=== PATIENT | male | born 1955 | race Caucasian/White ===

== ENCOUNTER 2018-06-04 17:06 | Inpatient (IN) | payer BC, OTHER ==
--- NOTE | 2018-06-04 19:34 | ED ---
GI/ HPI - HPI Summary HPI Summary: The pt is a 62 y/o male with a Mhx of colorectal CA [facility] c/o testicular pain and swelling since 4 days ago. The CA got diagnosed in 2016 and the pt is currently undergoing treatment at [facility] in [facility]. He notes bilateral LE edema, scrotal pain, penile pain, rectal pain, and insomnia secondary to pain but denies fever and constipation. The pain rated 8/10 in severity is aggravated by seating and alleviated by standing. The pt had radiation therapy to his brain and upper spine that ended a week and a half ago. He is off chemotherapy because it was not working. He takes Hydromorphone and Methadone for pain. - History of Current Complaint Chief Complaint: EDUrogenitalProblems Time Seen by Provider: 06/04/18 19:16 Stated Complaint: SWOLLEN TESTICLES/LEGS/FEET Hx Obtained From: Patient, Family/Insurance Application Investigator Onset/Duration: Started Days Ago - 4 days, Still Present Timing: Constant Current Severity: Severe Pain Intensity: 8 Additional Locations for Males: Penis, Scrotum, Testicles Aggravating Factor(s): Sitting Alleviating Factor(s): Position - Standing - Allergy/Home Medications Allergies/Adverse Reactions: Allergies Allergy/AdvReac Type Severity Reaction Status Date / Time No Known Allergies Allergy Verified 06/04/18 17:35 PMH/Surg Hx/FS Hx/Imm Hx Previously Healthy: No Endocrine/Hematology History: Denies: Hx Diabetes Cardiovascular History: Reports: Hx Atrial Fibrillation History: Reports: Other Problems/Disorders - Colorectal CA diagnosed in 2016 Sensory History: Denies: Hx Deafness Opthamlomology History: Denies: Hx Legally Blind - Cancer History Cancer Type, Location and Year: Colorectal CA- 2015 Date and Location of Last Treatment: Radiation therapy to his upper spine and brain 1.5 weeks ago. Hx Chemotherapy: Yes Hx Radiation Therapy: Yes - Surgical History Surgery Procedure, Year, and Place: Colostomy - 1 year ago Infectious Disease History: No Infectious Disease History: Denies: Traveled Outside the [place] in Last 30 Days - Family History Known Family History: Negative: Cardiac Disease, Hypertension, Diabetes - Social History Occupation: Employed Full-time Lives: With Family Alcohol Use: None Substance Use Type: Reports: None Hx Tobacco Use: No Review of Systems Constitutional: Other - Positive: Insomnia secondary to pain Negative: Fever Gastrointestinal: Negative - Constipation Positive: other - Positive: Scrotal pain and swelling, penile pain, testicular pain and swelling Positive: Edema - Bilateral LE All Other Systems Reviewed And Are Negative: Yes Physical Exam - Summary Physical Exam Summary: VITAL SIGNS: Reviewed. GENERAL: Patient is a well-developed and nourished male who is lying comfortable in the stretcher. Patient is not in any acute respiratory distress. HEAD AND FACE: No signs of trauma. No ecchymosis, hematomas or skull depressions. No sinus tenderness. EYES: PERRLA, EOMI x 2, No injected conjunctiva, no nystagmus. EARS: Hearing grossly intact. Ear canals and tympanic membranes are within normal limits. MOUTH: Oropharynx within normal limits. NECK: Supple, trachea is midline, no adenopathy, no JVD, no carotid bruit, no c- spine tenderness, neck with full ROM. CHEST: Symmetric, no tenderness at palpation LUNGS: Clear to auscultation bilaterally. No wheezing or crackles. CVS: Tachycardia, S1 and S2 present, no murmurs or gallops appreciated. ABDOMEN: Colostomy bag on the L side ,soft, non-tender. No signs of distention. No rebound no guarding, and no masses palpated. Bowel sounds are normal. EXTREMITIES: FROM in all major joints, bilateral 3 4+ pitting edema , no cyanosis or clubbing. GENITOURINARY:Scrotal edema; rectal stricture NEURO: Alert and oriented x 3. No acute neurological deficits. Speech is normal and follows commands. SKIN: Pale; Dry and warm Triage Information Reviewed: Yes Vital Signs On Initial Exam: Initial Vitals Temp Pulse Resp BP Pulse Ox 97.4 F 153 16 90/71 94 06/04/18 17:28 06/04/18 17:28 06/04/18 17:28 06/04/18 17:28 06/04/18 17:28 Vital Signs Reviewed: Yes Diagnostics - Vital Signs Vital Signs Temp Pulse Resp BP Pulse Ox 06/04/18 17:28 97.4 F 153 16 90/71 94 - Laboratory Result Diagrams: 06/04/18 19:42 06/04/18 19:42 Lab Statement: Any lab studies that have been ordered have been reviewed, and results considered in the medical decision making process. - Radiology CXR Radiology Interpretation Completed By: ED Physician - IMPRESSION: Bilateral focal rounded lesions consistent with metastasis, and superimposed L side PNA. Pending official report. - CT Chest/Thorax CT CT Interpretation Completed By: Radiologist - IMPRESSION: 1. No pulmonary embolus. No dissection or aneurysm in the chest. 2. Multiple pulmonary masses and nodules throughout the lungs, largest right lower lobe 4 cm consistent with metastatic disease. 3. Dense consolidation anteriorly in the left upper lobe. Some of this appearance is atelectasis, with the bronchus appearing abruptly occluded proximally. 4. Extensive hilar and mediastinal adenopathy. Infracarinal nodes measure up The ED physician reviewed this radiology report. - Ultrasound No standard instances Ultrasound Interpretation Completed By: Radiologist - IMPRESSION:Soft tissue edema without DVT in either lower extremity. The ED physician reviewed this radiology report. - EKG 19:38 Cardiac Rate: Tachycardia - 152 bpm EKG Rhythm: Atrial Flutter - with a 221 conduction 21:22 Cardiac Rate: Tachycardia - 112 bpm EKG Rhythm: Atrial Flutter - with a 321 conduction 21:24 Cardiac Rate: Tachycardia - 112 bpm EKG Rhythm: Atrial Flutter - with a 321 conduction GIGU Course/Dx - Course Course Of Treatment: A 62 year-old M presents to the ED with a CC of testicular swelling since 4 days ago. The CA got diagnosed in 2016 and the pt is currently undergoing treatment at [facility] in [facility]. He notes bilateral LE edema, scrotal pain, penile pain, rectal pain, and insomnia secondary to pain but denies fever and constipation. The pain rated 8/10 in severity is aggravated by seating and alleviated by standing. The pt had radiation therapy to his brain and upper spine that ended a week and a half ago. He is off chemotherapy because it was not working. He takes Hydromorphone and Methadone for pain. A physical exam revealed pallor, tachycardia, bilateral 3 - 4+ pitting edema, scrotal edema, rectal stricture and a colostomy bag on the L side. A CXR reveals bilateral focal rounded lesions consistent with metastasis, and superimposed L side PNA. A venous Doppler study reveals soft tissue edema without DVT in either lower extremity. An EKG reveals atrial flutter at 152 bpm with 2-2-1 conduction. Two repeat EKGS show atrial flutter with a 3-2-1 conduction. In the ED course, the pt was given Digoxin 0.5 mg IV, Diltiazem 10 mg IV twice , Fentanyl citrate 50 mcg IV twice and N.s 0.9% 1000ml IV twice , Hydromorphone 1mg IV, Levofloxacin 750 mg in 150 ml IVPB which improved the symptoms. Patient will be discharged with a final Dx of atrial flutter, bilateral LE edema and metastatic rectal CA. Pt is agreeable with this plan. Allergies noted. Patient has normal albumin, chest x-ray does not show CHF. Patient edema most likely orthostatic/dependant. I had a long discussion with patient and his . Patient needs to elevate his legs. Diuretics is not beneficial at this time especially with his low blood pressure. Patient's stated that the radiation oncologist told her that patient has edema and because of end organ failure which is not true. Patient chest CT did show left side postobstructive atelectasis versus consolidation. Patient was given Levaquin for possible consolidation. Patient will be admitted for his atrial flutter with RVR. - Diagnoses Provider Diagnoses: Atrial flutter, Rectal cancer metastasized to lung, Bilateral leg edema - Physician Notifications Discussed Care Of Patient With: Say Mills - 23:00 Instructed by Provider To: Admit As Inpatient Discharge - Sign-Out/Discharge Documenting (check all that apply): Patient Departure - Admit - Discharge Plan Condition: Stable Disposition: ADMITTED TO [facility] Referrals: [facility] [Outside] - 2 Days Additional Instructions: RETURN TO THE EMERGENCY DEPARTMENT FOR CHANGING OR WORSENING SYMPTOMS. FOLLOW UP WITH PCP IN 1-2 DAYS. - Attestation Statements Document Initiated by Scribe: Yes Documenting Scribe: Mayra Schroeder Provider For Whom Ellyn is Documenting (Include Credential): Dr. Ame Maxwell MD Scribe Attestation: Mayra Mcmanus, scribed for Dr. Ame Maxwell MD on 06/05/18 at 0043.
[2018-06-04] MEDS ORDERED: NS 0.9% 1000 ML* 1,000 ML IV ONE ×2 (19:52→20:35)
[2018-06-04] MEDS ORDERED: Digoxin IV* 0.5 MG/2 ML AMP (0.25 MG/ML) IV SLOW PU ONE (19:52)
[2018-06-04 19:53] LABS: ABS Basophils 0 10^3/ul (0-0.2); ABS Eosinophils 0 10^3/ul (0-0.6); ABS Lymphocytes 0.4 10^3/ul (1.0-4.8); ABS Monocytes 0.5 10^3/ul (0-0.8); ABS Neutrophils 4.3 10^3/ul (1.5-7.7); ABS Nucleated RBC 0 10^3/ul; Eosinophil % 0.2 % (0-6); Hematocrit 31 % (42-52); Hemoglobin 10.6 g/dl (14.0-18.0); Lymphocyte % 7.6 % (25-47); Mean Corpuscular HGB Conc 34 g/dl (31-36); Mean Corpuscular Hemoglobin 31 pg (27-31); Mean Corpuscular Volume 91 fL (80-94); Mean Platelet Volume 6.6 um3 (7.4-10.4); Nucleated Red Blood Cells % 0; Platelet Count 370 10^3/ul (150-450); Red Blood Count 3.43 10^6/ul (4.00-5.40); Red Cell Distribution Width 17 % (10.5-15); White Blood Count 5.3 10^3/ul (3.5-10.8)
[2018-06-04] MEDS ORDERED: Diltiazem IV* 5 MG/ML 5 ML VIAL (for loading dose/IV Push) (25 MG) IV SLOW PU ONE ×3 (19:57→22:55)
[2018-06-04 20:01] LABS: INR 0.98 (0.77-1.02)
[2018-06-04] MEDS ORDERED: fentaNYL* 50 MCG/ML 2 ML VIAL (100 MCG VIAL) IV SLOW PU ONE ×2 (20:03→20:26)
[2018-06-04] MEDS ORDERED: Diltiazem IV* 5 MG/ML 5 ML VIAL (for loading dose/IV Push) (25 MG) ONE (20:26)
[2018-06-04] MEDS ORDERED: fentaNYL* 50 MCG/ML 2 ML VIAL (100 MCG VIAL) ONE (20:27)
[2018-06-04] MEDS ORDERED: Levofloxacin 750 MG IVPREMIX(* 750 MG/150 ML BAG IVPB ONE (20:36)
[2018-06-04] MEDS ORDERED: HYDROmorphone INJ* 2 MG/ML CARPUJECT SYRINGE IV SLOW PU ONE (20:39)
[2018-06-04] MEDS ORDERED: HYDROmorphone INJ1* 1 MG/ML SYRINGE ONE (20:44)
[2018-06-04] MEDS ORDERED: HYDROmorphone INJ1* 1 MG/ML SYRINGE IV SLOW PU ONE (20:49)
[2018-06-04] MEDS ORDERED: Iohexol 350* (CONTRAST) 500 ML MDV IV ONE (22:00)
--- NOTE | 2018-06-04 22:06 | RAD ---
EXAM: US Duplex Bilateral Lower Extremity Veins CLINICAL HISTORY: 62 years old, male; Signs and symptoms; Swelling of limb; Lower extremity, bilateral; Patient HX: HX: Ca. Ble swelling; Additional info: Le edema TECHNIQUE: Real-time duplex ultrasound scan of the bilateral lower extremity veins integrating B-mode two-dimensional vascular structure, Doppler spectral analysis, color flow Doppler imaging and compression. COMPARISON: No relevant prior studies available. FINDINGS: Right deep veins: See below. Right superficial veins: Unremarkable. No thrombus in the visualized right great saphenous vein. Left deep veins: See below. Left superficial veins: Unremarkable. No thrombus in the visualized left great saphenous vein. Soft tissues: Soft tissue edema without DVT in either lower extremity. No popliteal cyst. IMPRESSION: Soft tissue edema without DVT in either lower extremity. To contact [facility] with a general question: [facility] - [phone] For direct physician to physician contact: Physician Hotline - [phone] [facility] ([facility] Facility ID #[id number])
--- NOTE | 2018-06-04 22:31 | RAD ---
EXAM: CT Angiography Chest With Intravenous Contrast CLINICAL HISTORY: 62 years old, male; Signs and symptoms; Other: R/O pe; Additional info: R/O pe per md. Colon ca, C/O swelling to scrotum/penis, rectum. Area is painful. Seen at [facility]. Self-caths tid at baseline TECHNIQUE: Axial computed tomographic angiography images of the chest with intravenous contrast using pulmonary embolism protocol. All CT scans at this facility use at least one of these dose optimization techniques: automated exposure control; mA and/or kV adjustment per patient size (includes targeted exams where dose is matched to clinical indication); or iterative reconstruction. MIP reconstructed images were created and reviewed. Coronal and sagittal reformatted images were created and reviewed. CONTRAST: 66 mL of [id number] administered intravenously. COMPARISON: No relevant prior studies available. FINDINGS: Pulmonary arteries: No pulmonary embolus. No dissection or aneurysm in the chest. Aorta: No acute findings. No thoracic aortic aneurysm. Lungs: Multiple pulmonary masses and nodules throughout the lungs, largest right lower lobe 4 cm consistent with metastatic disease. Dense consolidation anteriorly in the left upper lobe. Some of this appearance is atelectasis, with the bronchus appearing abruptly occluded proximally. Pleural space: Minimal pleural effusions. Smaller is a robust nodularity suggesting metastatic disease. Additional right lower paraspinal mass measuring 4 cm which appears metastatic. No pneumothorax. Heart: Unremarkable. No cardiomegaly. No significant pericardial effusion. No evidence of RV dysfunction. Bones/joints: Sclerotic changes T2 vertebral body consistent with metastatic disease. No acute fracture. No dislocation. Soft tissues: Unremarkable. Lymph nodes: Extensive hilar and mediastinal adenopathy. Infracarinal nodes measure up to 2.9 cm short axis. Other findings: [id number]. IMPRESSION: 1. No pulmonary embolus. No dissection or aneurysm in the chest. 2. Multiple pulmonary masses and nodules throughout the lungs, largest right lower lobe 4 cm consistent with metastatic disease. 3. Dense consolidation anteriorly in the left upper lobe. Some of this appearance is atelectasis, with the bronchus appearing abruptly occluded proximally. 4. Extensive hilar and mediastinal adenopathy. Infracarinal nodes measure up to 2.9 cm short axis. 5. Minimal pleural effusions. Small areas of pleural nodularity suggesting metastatic disease. Additional right lower paraspinal mass measuring 4 cm which appears metastatic. 6. Sclerotic changes T2 vertebral body consistent with metastatic disease. To contact [facility] with a general question: Operations Center - [phone] For direct physician to physician contact: Physician Hotline - [phone] [facility] ([facility] Facility ID #[id number])
[2018-06-04] MEDS ORDERED: Diltiazem IV VIAL* 125 MG in NS 0.9% 100 ML* 100 ML IVPB ONE (22:55)
[2018-06-04] MEDS ORDERED: Diltiazem DRIP* 100 MG in NS 100 ML ADDV.BAG IVPB SCH (23:00)
[2018-06-04] MEDS ORDERED: Diltiazem DRIP* 100 MG/100 ML ADDV.BAG IVPB ONE (23:16)
[2018-06-04] MEDS: Diltiazem DRIP* 100 MG in NS 100 ML ADDV.BAG IVPB ONE (23:38)
[2018-06-05] MEDS: HYDROmorphone TAB* 4 MG PO PRN ×4 (03:39→17:17)
[2018-06-05] MEDS ORDERED: Digoxin IV* 0.5 MG/2 ML AMP (0.25 MG/ML) IV SLOW PU ONE ×3 (03:46→12:42)
[2018-06-05] MEDS ORDERED: fentaNYL PATCHs 100 MCG/HR TRANSDERM SCH ×3 (04:00→09:00)
[2018-06-05] MEDS ORDERED: fentaNYL PATCH 75 MCG/HR* 75 MCG TRANSDERM SCH ×2 (04:00→04:29)
[2018-06-05] MEDS: Tamsulosin CAP* 0.4 MG PO SCH (04:18)
[2018-06-05] MEDS: Methadone TAB* 5 MG PO SCH ×3 (04:19→19:45)
[2018-06-05] MEDS ORDERED: HYDROmorphone INJ1* 1 MG/ML SYRINGE IV SLOW PU ONE (04:29)
[2018-06-05] MEDS ORDERED: HYDROmorphone INJ* 2 MG/ML CARPUJECT SYRINGE IV SLOW PU ONE (04:29)
[2018-06-05] MEDS ORDERED: HYDROmorphone INJ1* 1 MG/ML SYRINGE ONE ×3 (04:35→23:50)
[2018-06-05] MEDS ORDERED: fentaNYL PATCHs 100 MCG/HR ONE (04:46)
[2018-06-05] MEDS: fentaNYL PATCHs 100 MCG/HR TRANSDERM SCH (05:08)
[2018-06-05 06:19] LABS: EGFR Non-African American 72.6 (>60)
[2018-06-05] MEDS: fentaNYL Patch Check Q Shift 1 NOTE FOLLOW UP SCH ×2 (07:24→19:09)
--- NOTE | 2018-06-05 07:52 | RAD ---
HISTORY: CHF, history of cancer COMPARISONS: None VIEWS: 1: frontal AP view of the chest at 8:26 PM FINDINGS: LINES AND TUBES: A right-sided chest port is noted with the tip overlying the cavoatrial junction. CARDIOMEDIASTINAL SILHOUETTE: The cardiomediastinal silhouette is normal for portable technique. PLEURA: The costophrenic angles are sharp. No pleural abnormalities are noted. LUNG PARENCHYMA: There are multiple nodules and masses overlying the lung yanes bilaterally, measuring up to 4.1 cm in size. There is patchy alveolar opacification of the left lower lung field. ABDOMEN: The upper abdomen is clear. There is no subphrenic gas. BONES AND SOFT TISSUES: No bone or soft tissue abnormalities are noted. IMPRESSION: 1. MULTIPLE PARENCHYMAL MASSES MOST CONSISTENT WITH METASTATIC DISEASE TO THE LUNG GIVEN THE HISTORY OF MALIGNANCY. 2. PATCHY AIRSPACE DISEASE OF THE LEFT LUNG R0
--- NOTE | 2018-06-05 07:59 | HP ---
HISTORY AND PHYSICAL: DATE OF ADMISSION: 06/05/18 ADMITTING PROVIDER: Say Mills MD CHIEF COMPLAINT: Scrotal and leg edema. HISTORY OF PRESENT ILLNESS: Dustin Juarez is a 62-year-old male with past medical history of metastatic colorectal cancer, status post colectomy, IV & oral chemotherapies and radiation, who follows at [facility] with oncologist, Dr. Roscoe Harrell. For the last 2 weeks, he has developed swelling in his legs and for the last 4 days scrotal swelling that has become quite uncomfortable despite his large doses of chronic opioids for his colorectal cancer. He also has a history of paroxysmal atrial fibrillation. He is not the best historian. His clay artist is Dr. Rodarte (he thinks ?) Tyler also at [facility], who has brought up the concepts of anticoagulation in the past , but nothing came out of that conversation. He says cardioversion and electrophysiology procedures also seem to have been discussed in the past. The patient last checked his heart rate about 2 weeks ago. Usually it runs in the 50s to 70s and occasionally up to 135. He denies orthopnea or paroxysmal nocturnal dyspnea. On presentation in the emergency room, he was found to be in Aflutter with a heart rate in the 150s. He was given diltiazem 10 mg at 2018 , 10 mg at 2034, another 10mg at 2334 and placed on a diltiazem drip. He also got digoxin 0.5 mg at 2018. He was placed on a diltiazem drip, which has brought his heart rates to around 120s. He was referred to the hospitalist service for admission given his atrial flutter, hypotension with blood pressures mostly in the mid 80s to mid 90s systolically and 50s to 60s diastolically. The lowest recorded in ED was 57/45. He notably denies any chest pain or shortness of breath. PAST MEDICAL HISTORY: Metastatic terminal stage IV colorectal cancer diagnosed in June 2016, status post radiation, chemotherapy and colectomy; paroxysmal atrial fibrillation/flutter, chronic opioid use for the colorectal cancer, BPH. PAST SURGICAL HISTORY: Colectomy. MEDICATIONS: 1. Fentanyl patch 200 mcg every 72 hours (pt is insistent that his current dose is 200 mcg although of note [facility] Prescription monitoring program lists 100mcg and 50mcg patches filled on 06/02/18) 2. Dilaudid 16 mg p.o. q.8 hours p.r.n. 3. Methadone 5 mg t.i.d. 4. Tamsulosin 0.4 mg p.o. daily. 5. Protonix 40 mg p.o. daily. 6. Marinol 10 mg p.o. t.i.d. p.r.n. (still need to reconcile). 7. Diltiazem 240 mg p.o. daily. 8. Metoprolol succinate 75 mg p.o. daily. ALLERGIES: None. FAMILY HISTORY: Father of what sounds like acute brain aneurysm bleed at age 70. Mother with congestive heart failure at 75, though "nothing was really wrong with her heart". SOCIAL HISTORY: The patient is a never smoker, never drinker. Desires to be DNR/DNI. Medical surrogate is his , Samira Rivas. REVIEW OF SYSTEMS: A 14-point review of systems is negative except as per HPI. Attests to scrotal and leg pains. Denies orthopnea or paroxysmal nocturnal dyspnea or shortness of breath or chest pain. PHYSICAL EXAMINATION GENERAL APPEARANCE: No acute distress. VITAL SIGNS: Temperature 97.4; pulse as high as 151 recorded, currently 128; blood pressures on presentation 90/71; respiratory rate 21; saturating 94% on room air. HEENT: Normocephalic, atraumatic. Pupils are equal, round, and reactive to light. Extraocular motions intact. No scleral icterus. NECK: Supple. No cervical lymphadenopathy. LUNGS: With expiratory wheezing diffusely. No rhonchi or rales. CARDIOVASCULAR: Irregularly irregular. Tachycardic. No murmurs, rubs, or gallops. ABDOMEN: Soft, nontender, nondistended. Left lower quadrant colectomy with opaque covering. EXTREMITIES: 3+ pitting edema in feet bilaterally, 2+ in bilateral shins. GENITOURINARY: Scrotum size just larger than a soft ball. LABORATORY DATA: White count is 5.3, hemoglobin 10.6, hematocrit 31, platelets 371, INR 0.98. Sodium 136, potassium 4.8, chloride 99, carbon dioxide 28, BUN 20, creatinine 1.16, glucose 103, magnesium 2.1. AST 12, ALT 7 , alk phos 91. BNP 164. IMAGIN. Venous Dopplers with soft tissue edema without DVT bilaterally. The CT chest angiogram, which demonstrated no pulmonary embolus, no dissection or aneurysm. 2. Multiple pulmonary masses and nodules throughout the lungs, largest right lower lobe, 4 cm, consistent with metastatic disease. 3. Dense consolidation anteriorly in the left upper lobe. Some of this appearance is atelectasis, with the bronchus appearing abruptly occluded proximally. 4. Extensive hilar mediastinal adenopathy, infracarinal nodes measure up to 2.9 cm short axis. 5. Minimal pleural effusion. Small area of pleural nodularity suggesting metastatic disease. Additional right lower paraspinal mass measuring 4 cm, which appears metastatic. 6. Sclerotic changes at T2 which are probably consistent with metastatic disease. Chest x-ray formal read pending, but with diffuse opacities bilaterally with poorer aeration on the left. EKG initially at 1938 with heart rate 152, atrial flutter, sinus tachycardia, prolonged QRS interval of 122. No ST elevations or depressions. EKG at 2121 with Aflutter with variable AV conduction alternating 1:1 and 1:2. ASSESSMENT AND PLAN: Dustin Juarez is a 62year-old male with metastatic end-stage colorectal cancer and paroxysmal atrial fibrillation, not on anticoagulation, presenting worsening lower extremity edema and scrotal edema over the last 2 weeks and 4 days respectively. His BNP is elevated at 164, he has 3+ pitting lower extremity edema. There is concern for tachyarrhythmia associated congestive heart failure exacerbation, though given his wide spread metastatic disease, it is also possible that he has intrinsic compressive effects of the vasculature in pelvis or abdomen that could be causing this as well. He reports his last echocardiogram was in April 2017. We do not have these records, but they will be requested. Since it was reportedly a normal study, we are going to repeat echocardiogram here concerned for potential CHF; to assess his valvular function; and his atrial size which could be contributing to his atrial flutter. Bigger picture is his end-stage metastatic disease. His blood pressures have been soft on the diltiazem drip (and before) and he has been started on a load of digoxin with 0.5mg IV. Consider another 0.25 overnight if uncontrolled, but we will hold off for now, get a digoxin level in the morning. Replete lytes with goal potassium above 4, magnesium above 2; these are okay on admission. For his chronic pain, he is on a fentanyl 200 mcg patch every 72 hours, methadone 5 mg t.i.d., and Dilaudid 16 mg every 8 hours; those will be continued. Additional IV dialudid prn for breakthrough pain. Continue his Flomax for BPH. Unfortunately, there is no room with his blood pressures to try to diurese him, and in fact he got boluses of fluid in the ED given the soft pressures and relative dynamic instability, 2 L total. The patient was somewhat ambivalent about coming into the hospital, which is understandable given his overall prognosis, but he did ultimately want to be admitted rather than sign AMA paperwork. Hopefully, we can transition him back to oral agents. He does not want to commit to any cardioversion attempts until he can talk to his . He could be considered for a JOSUE (as he is not on anticoagulation) cardioversion if he does decide to go that route. Otherwise, we will try to control medically with beta blockers, calcium channel blockers, and digoxin. He is a DNR/DNI. He will be made n.p.o. for now until he decides ultimately on whether or not he would want a JOSUE cardioversion. [id number]/[facility] #: [id number] [place]
[2018-06-05] MEDS: Diltiazem DRIP* 100 MG in NS 100 ML ADDV.BAG IVPB ONE (08:17)
[2018-06-05] MEDS ORDERED: Pneumococcal *Vac Polyvalent 0.5 ML VIAL IM ONE (09:00)
[2018-06-05] MEDS ORDERED: Methadone TAB* 5 MG PO SCH (09:00)
[2018-06-05] MEDS ORDERED: Furosemide IV* 10 MG/ML 2 ML VIAL (20 MG) IV SLOW PU ONE ×2 (11:05→16:46)
[2018-06-05] MEDS ORDERED: HYDROmorphone INJ1* 1 MG/ML SYRINGE IV SLOW PU PRN (11:07)
[2018-06-05] MEDS: HYDROmorphone INJ1* 1 MG/ML SYRINGE IV SLOW PU PRN ×7 (11:19→23:52)
[2018-06-05] MEDS ORDERED: Amiodarone 150 MG IVPREMIX* 150 MG/100 ML BAG IV ONE (12:34)
[2018-06-05] MEDS ORDERED: Metoprolol Tartrate IV* 1 MG/ML 5 ML VIAL ONE (12:39)
--- NOTE | 2018-06-05 12:41 | PN ---
Date of Service: 06/05/18 Critical Care Services: 62M with afib/flutter, bph, metastatic colon cancer presents with scrotal swelling, afib with rvr. CT chest showing ROSY post obstructive pna. Has scrotal pain and swelling. Started on cardizem gtt. 06/05: Patient becoming hypotensive. Cardizem gtt stopped. Froy ordered. Cardiology consult called. Vital Signs: Temp Pulse Resp BP SpO2 FiO2 98.3 F 146 19 104/92 92 06/05/18 08:00 06/05/18 11:46 06/05/18 12:20 06/05/18 12:00 06/05/18 11:46 Physical Exam: Gen - nad heent - ncat, eomi, peerl neck - no jvd cv - s1/s2, irregular, tachy lungs - +ronch L > R abd - +colostomy gu - +scroal swelling ext - +edema neuro - non-focal Fluid Balance (Past 24 Hours): I= O= Net Intake & Output 06/03/18 06/04/18 06/05/18 06/06/18 06:59 06:59 06:59 06:59 Intake Total 2120 Output Total 200 Balance 2120 -200 Weight 78.6 kg Intake: IV Fluids 2100 Medicated IV 20 Cardizem 20 Output: Urine 200 Other: Estimated Void Small Small # Voids 1 Labs: Laboratory Results - last 24 hr 06/04/18 06/04/18 06/04/18 19:42 19:42 19:42 WBC 5.3 RBC 3.43 L Hgb 10.6 L Hct 31 L MCV 91 MCH 31 MCHC 34 RDW 17 H Plt Count 370 MPV 6.6 L Neut % (Auto) 81.4 Lymph % (Auto) 7.6 L Doddridge % (Auto) 10.2 H Eos % (Auto) 0.2 Baso % (Auto) 0.6 Absolute Neuts (auto) 4.3 Absolute Lymphs (auto) 0.4 L Absolute Monos (auto) 0.5 Absolute Eos (auto) 0 Absolute Basos (auto) 0 Absolute Nucleated RBC 0 Nucleated RBC % 0 INR (Anticoag Therapy) 0.98 APTT 29.7 Sodium 136 Potassium 4.8 Chloride 99 L Carbon Dioxide 28 Anion Gap 9 BUN 20 Creatinine 1.16 Est GFR ( Amer) 77.4 Est GFR (Non-Af Amer) 64.0 BUN/Creatinine Ratio 17.2 Glucose 103 H Calcium 9.1 Magnesium 2.1 Total Bilirubin 0.80 AST 12 L ALT 7 Alkaline Phosphatase 91 B-Natriuretic Peptide Total Protein 6.1 L Albumin 3.4 Globulin 2.7 Albumin/Globulin Ratio 1.3 Digoxin 06/04/18 06/05/18 19:42 05:30 WBC RBC Hgb Hct MCV MCH MCHC RDW Plt Count MPV Neut % (Auto) Lymph % (Auto) Doddridge % (Auto) Eos % (Auto) Baso % (Auto) Absolute Neuts (auto) Absolute Lymphs (auto) Absolute Monos (auto) Absolute Eos (auto) Absolute Basos (auto) Absolute Nucleated RBC Nucleated RBC % INR (Anticoag Therapy) APTT Sodium 135 Potassium 4.1 Chloride 102 Carbon Dioxide 26 Anion Gap 7 BUN 17 Creatinine 1.04 Est GFR ( Amer) 87.9 Est GFR (Non-Af Amer) 72.6 BUN/Creatinine Ratio 16.3 Glucose 109 H Calcium 8.0 L Magnesium 1.9 Total Bilirubin AST ALT Alkaline Phosphatase B-Natriuretic Peptide 164 H Total Protein Albumin Globulin Albumin/Globulin Ratio Digoxin Cancelled Studies: CXR 06/04 IMPRESSION: 1. MULTIPLE PARENCHYMAL MASSES MOST CONSISTENT WITH METASTATIC DISEASE TO THE LUNG GIVEN THE HISTORY OF MALIGNANCY. 2. PATCHY AIRSPACE DISEASE OF THE LEFT LUNG Doppler 06/04 IMPRESSION: Soft tissue edema without DVT in either lower extremity. CTA Chest 06/04 IMPRESSION: 1. No pulmonary embolus. No dissection or aneurysm in the chest. 2. Multiple pulmonary masses and nodules throughout the lungs, largest right lower lobe 4 cm consistent with metastatic disease. 3. Dense consolidation anteriorly in the left upper lobe. Some of this appearance is atelectasis, with the bronchus appearing abruptly occluded proximally. 4. Extensive hilar and mediastinal adenopathy. Infracarinal nodes measure up to 2.9 cm short axis. 5. Minimal pleural effusions. Small areas of pleural nodularity suggesting metastatic disease. Additional right lower paraspinal mass measuring 4 cm which appears metastatic. 6. Sclerotic changes T2 vertebral body consistent with metastatic disease. Impression: 62M with afib/flutter, bph, metastatic colon cancer presents with scrotal swelling, afib with rvr. CT chest showing ROSY post obstructive pna. Has scrotal pain and swelling. Plan: Neuro - pain control CV - aflutter with rvr - cardizem discontinued for hypotension - start phenylephrine for bp support - metoprolol 25mg po q8 ordered - cardiology consult called Pulm - hypoxia - 2/2 pulmonary mets and post-obstructive pneumonia - supplemental o2 prn ID - post-obstructive pneumonia - empiric levaquin - f/u cultures - serial lactates GI - diet as tolerated Renal/ - scrotal swelling - 2/2 venous outflow obstruction from colon cancer vs volume overload - trial of lasix - ct scan abd/pel Heme - metastatic colon cancer - as per patient no further treatment - will call [facility] to confirm - hospice evaluation Endo - check fs, niss Lines - port PPx - gi/dvt DNR/DNI Critical Care Time: 55 mins
[2018-06-05] MEDS ORDERED: Amiodarone 360 MG IVPREMIX* 360 MG/200 ML BAG IV ONE (12:45)
[2018-06-05] MEDS ORDERED: Metoprolol Tartrate IV* 1 MG/ML 5 ML VIAL IV ONE (12:46)
[2018-06-05] MEDS: Phenylephrine INJ* 50 MG in NS 0.9% 250 ML* 245 ML IV SCH ×2 (12:58→20:24)
[2018-06-05] MEDS: Metoprolol Tartrate TAB* 25 MG PO SCH ×2 (13:16→19:45)
--- NOTE | 2018-06-05 14:03 | ECHO ---
Patient: NORBERT ROCHE [facility] Rec#: [id number] : 1955 Date: 06/05/2018 Age: 62y Height: 180 cm / 70.9 in Weight: 72.58 kg / 160.0 lbs Sex: M BSA: 1.92 Room#: [facility] Admit Date#: 06/05/2018 Type: Inpatient Referring: [place] Reading: Arturo Pierre DO Toy Mechanic[facility] Ech[facility] Indication: Congestive heart failure, edema BP: 96/69 HR: 163 Rhythm: A-Flutter Findings History: Colorectal cancer with metastasis to lungs, radiation, and chemotherapy. Technical Comments: The study quality is good. Completed at 0840. Left Ventricle: The left ventricular chamber size is normal. There is no left ventricular hypertrophy. Left ventricular systolic function is at the lower limits of normal. The estimated ejection fraction is 50-55%. , no segmental wall motion abnormalities. Ability to estimate LVEF reduced by rapid atrial flutter at time of examination. The assessment of diastolic function is non-diagnostic. Left Atrium: The left atrial chamber size is normal. Right Ventricle: The right ventricular cavity size is normal. The right ventricular global systolic function is mildly reduced. Right Atrium: The right atrial cavity size is normal. Aortic Valve: The aortic valve is trileaflet. The aortic valve leaflets are mildly thickened. There is a trace of aortic regurgitation. There is no evidence of aortic stenosis. Mitral Valve: The mitral valve leaflets are mildly thickened. There is mild mitral regurgitation. There is no evidence of mitral stenosis. Tricuspid Valve: The tricuspid valve leaflets are normal. There is trace tricuspid regurgitation. Unable to estimate the right ventricular systolic pressure. There is no tricuspid stenosis. Pulmonic Valve: The pulmonic valve appears normal. There is a trace pulmonic regurgitation. There is no pulmonic stenosis. Pericardium: There is no significant pericardial effusion. Aorta: There is no dilatation of the ascending aorta. There is no dilatation of the aortic arch. There is mild dilatation of the aortic root. Pulmonary Artery: The main pulmonary artery is not well visualized. Venous: The inferior vena cava appears normal in size. There is a greater than 50% respiratory change in the inferior vena cava dimension. Conclusions The left ventricular chamber size is normal. There is no left ventricular hypertrophy. Left ventricular systolic function is at the lower limits of normal. The estimated ejection fraction is 50-55%. , no segmental wall motion abnormalities. Ability to estimate LVEF reduced by rapid atrial flutter at time of examination. The left atrial chamber size is normal. The right ventricular cavity size is normal. The right ventricular global systolic function is mildly reduced. No significant valvular abnormalities noted Unable to estimate the right ventricular systolic pressure. Catheter visualized in right atrium Small amount of pericardial fluid adjacent to right atrium, likely physiologic, possibly malignant related None prior for comparison at time of interpretation Measurements Name Value Normal Range RVIDd (AP) 2D 3.2 cm (0.9 - 2.6) RVDdMajor (2D) 3.8 cm (2.2 - 4.4) RAd ISD 4CH 4.7 cm (3.4 - 4.9) RA (A4C)W 4.1 cm (2.9 - 4.6) IVSd (2D) 1 cm (0.6 - 1) LVPWd (2D) 0.8 cm (0.6 - 1) LVIDd (2D) 4.6 cm (3.6 - 5.4) LVIDs (2D) 2.8 cm - LV FS (2D) 39 % (25 - 45) Aortic Annulus 2.6 cm (1.4 - 2.6) Ao root diameter (2D) 3.7 cm (2.1 - 3.5) Ascending Ao 3.1 cm (2.1 - 3.4) Aortic arch 2.6 cm (1.8 - 3.4) LA dimension (AP) 2D 3.9 cm (2.3 - 3.8) LAd ISD 4CH 3.6 cm (2.9 - 5.3) LA ISD 4CH W 3.7 cm (2.5 - 4.5) Name Value Normal Range LA ESV BP (A/L) index 26 ml/m2 - Name Value Normal Range MV E-wave Vmax 1.1 m/sec - MV deceleration time 133 msec - LV septal e' Vmax 0.12 m/sec - LV lateral e' Vmax 0.17 m/sec - LV E:e' septal ratio 9.17 ratio - LV E:e' lateral ratio 6.47 ratio - Name Value Normal Range AV Vmax 1.1 m/sec - AV VTI 18.6 cm - AV peak gradient 4 mmHg - AV mean gradient 3 mmHg - LVOT Vmax 0.9 m/sec - LVOT VTI 15.7 cm - LVOT peak gradient 3 mmHg - LVOT mean gradient 2 mmHg - RAHUL Vmax 0.8 m/sec - Name Value Normal Range IVC diameter 2 cm - Name Value Normal Range PV Vmax 0.8 m/sec - PV peak gradient 3 mmHg -
[2018-06-05] MEDS ORDERED: Metoprolol Tartrate TAB* 25 MG PO ONE (17:35)
--- NOTE | 2018-06-05 17:38 | CONSULT ---
Subjective Date of Service: 06/05/18 Interval History: Admission Date: 06/05/18 Consult date: 06/05/2018 PCP: None Receives Oncology care at [facility], Dr. Roscoe Harrell Oncologist CHIEF COMPLAINT: Scrotal and leg edema. Reason for consult: Atrial flutter rate control management HISTORY OF PRESENT ILLNESS: Dustin Juarez is a 62-year-old man with widely metastatic colorectal cancer who is transitioning to hospice is admitted with scrotal and leg edema and found with rapid atrial flutter. He tells me he has had this arrhythmia most of his life. 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 He was admitted and received IV boluses of diltiazem and infusion which caused low BP and did not help with rate. He has received an IV full digoxin load and metoprolol and his HR is currently 105-110 bpm at rest with SBP ~ 100 mmHg PAST MEDICAL HISTORY: Metastatic terminal stage IV colorectal cancer diagnosed in June 2016, status post radiation chemotherapy and colectomy, paroxysmal atrial fibrillation/flutter, chronic opioid use for the colorectal cancer, BPH. PAST SURGICAL HISTORY: Colectomy. ALLERGIES: None. FAMILY HISTORY: Father hemorraghic cva 70. Mother with congestive heart failure at 75, SOCIAL HISTORY: The patient is a never smoker, never drinker. Desires to be DNR/DNI. Medical surrogate is his , Samira Rivas. Medications Active Medications: Digoxin (Lanoxin Tab*) 0.125 mg PO DAILY [facility] Fentanyl (Duragesic Patch 100 Mcg/Hr *) 200 mcg TRANSDERM Q72H [facility] Last Admin: 06/05/18 05:08 Dose: 200 mcg Hydromorphone HCl (Dilaudid Tab*) 16 mg PO Q8H PRN PRN Reason: PAIN Last Admin: 06/05/18 17:17 Dose: 16 mg Hydromorphone HCl (Dilaudid Inj1s*) 3 mg IV SLOW PU Q2H PRN PRN Reason: PAIN Last Admin: 06/05/18 17:17 Dose: 3 mg Phenylephrine HCl 50 mg/ (Sodium Chloride) 250 mls @ 9 mls/hr IV Q24H [facility]; Protocol Last Admin: 06/05/18 12:58 Dose: 9 mls/hr Methadone HCl (Dolophine Tab*) 5 mg PO Q8H [facility] Last Admin: 06/05/18 12:20 Dose: 5 mg Metoprolol Tartrate (Lopressor Tab*) 25 mg PO Q8H [facility] Last Admin: 06/05/18 13:16 Dose: 25 mg Metoprolol Tartrate (Lopressor Tab*) 25 mg PO ONCE ONE Stop: 06/05/18 17:36 Pharmacy Profile Note (Fentanyl Patch Check Q Shift) 1 note FOLLOW UP 0700, 1900 [facility] Last Admin: 06/05/18 07:24 Dose: 1 note Tamsulosin HCl (Flomax Cap*) 0.4 mg PO 0900 [facility] Last Admin: 06/05/18 04:18 Dose: 0.4 mg Home Medications: Dronabinol 10 mg PO TID PRN 06/05/18 [History Confirmed 06/05/18] HYDROmorphone TAB* [Dilaudid TAB*] 16 mg PO Q8H PRN 06/05/18 [History Confirmed 06/05/18] Methadone TAB* [Dolophine TAB*] 1 tab PO TID 06/05/18 [History Confirmed ] Metoprolol Succinate [Toprol Xl] 75 mg PO DAILY 06/05/18 [History Confirmed 01/16] Pantoprazole TAB (NF) 40 mg PO DAILY 06/05/18 [History Confirmed 06/05/18] Tamsulosin CAP* [Flomax CAP*] 0.4 mg PO DAILY 06/05/18 [History Confirmed ] dilTIAZem HCl [Cartia Xt] 240 mg PO DAILY 06/05/18 [History Confirmed 06/05/18] fentaNYL PATCHs 100 MCG/HR* [Duragesic Patch 100 Mcg/Hr *] 150 mg TRANSDERM Q72HR 06/05/18 [History Confirmed 06/05/18] Review of Systems - Measurements Intake and Output: Intake and Output Last 24 Hours 06/03/18 06/04/18 06/05/18 06/06/18 06:59 06:59 06:59 06:59 Intake Total 2120 250 Output Total 1300 Balance 2120 -1050 Weight 173 lb 4.533 oz Intake: IV Fluids 2100 Medicated IV 20 132 Cardizem 20 102 neosynephrine 30 Oral 118 Output: Urine 500 Straight Cath 800 Other: Estimated Void Small Small # Voids 1 - Review of Systems Review of Systems Statement: Patient complains of weakness, fatigue and lower extremity edema. Denies cp, palpitations or dyspnea at rest All other review of systems negative, unless stated above. Objective Vital Signs: Temp Pulse Resp BP Pulse Ox 98.4 F 118 20 100/83 92 06/05/18 15:55 06/05/18 17:16 06/05/18 17:17 06/05/18 17:16 06/05/18 17:16 Oxygen Devices in Use Now: None Appearance: chronically ill appearing, nad Ears/Nose/Mouth/Throat: Clear Oropharnyx, Mucous Membranes Moist Neck: NL Appearance and Movements; NL JVP, Trachea Midline Respiratory: Symmetrical Chest Expansion and Respiratory Effort, - - scattered crackles and coarse sounds Cardiovascular: - - tachycardic, irregular, no significant murmur Abdominal: - - no rigidity Extremities: No Clubbing, Cyanosis, - - 3+ pitting edema lower extremities Skin: No Rash or Ulcers, - - port right upper chest wall Neurological: Alert and Oriented x 3 Laboratory Results: 06/04/18 19:42 06/05/18 05:30 INR (Anticoag Therapy) 0.98 (0.77-1.02) 06/04/18 19:42 APTT 29.7 seconds (26.0-36.3) 06/04/18 19:42 Total Bilirubin 0.80 mg/dL (0.2-1.0) 06/04/18 19:42 AST 12 U/L (13-39) L 06/04/18 19:42 ALT 7 U/L (7-52) 06/04/18 19:42 Alkaline Phosphatase 91 U/L (34-104) 06/04/18 19:42 B-Natriuretic Peptide 164 pg/mL (-100) H 06/04/18 19:42 Total Protein 6.1 g/dL (6.4-8.9) L 06/04/18 19:42 Albumin 3.4 g/dL (3.2-5.2) 06/04/18 19:42 Globulin 2.7 g/dL (2-4) 06/04/18 19:42 Albumin/Globulin Ratio 1.3 (1-3) 06/04/18 19:42 Diagnostic Imaging: This admission imaging 1. Venous Dopplers with soft tissue edema without DVT bilaterally. The CT chest angiogram, which demonstrated no pulmonary embolus, no dissection or aneurysm. Multiple pulmonary masses and nodules throughout the lungs, largest right lower lobe at 4 cm, consistent with metastatic disease. Dense consolidation anteriorly in the left upper lobe. Some of this appearance is atelectasis, with the bronchus appearing abruptly occluded proximally. Extensive hilar mediastinal adenopathy, infracarinal nodes measure up to 2.9 cm short axis. Minimal pleural effusion. Small area of pleural nodularity suggesting metastatic disease. Additional right lower paraspinal mass measuring 4 cm, which appears metastatic. Sclerotic changes at T2 which are probably consistent with metastatic disease. 06/04/2018: EKG 1 - 2:1 atrial flutter EKG 2 - Atrial flutter with low QRS voltage, variable conduction 112 bpm Echo 06/05/2018: LVEF 50-55% Mild RV dysfunctio no significant valvular disease Unable to estimate PASP Small amount of fluid adjacent to RA Assessment/Plan Atrial flutter rate control management - Multifactorial high rates being driven by underlying metastatic end stage cancer - Limited by BP with rate control agents - Would use digoxin and metoprolol for rate control and avoid diltiazem for now - Start digoxin 0.125 mg po daily (ordered) - Continue metoprolol 25 mg po tid, will uptitrate as needed. Give an extra 25 mg po x 1 now (ordered) - Lower extremity edema is non-cardiac, may be limited with diuretic use due to BP constraints. Midodrine could be an option if absolutely necessary Will follow Thank you for allowing me to participate in the cardiovascular care of this patient. Please do not hesitate to contact me with questions or concerns.
[2018-06-05] MEDS ORDERED: Amiodarone 360 MG IVPREMIX* 360 MG/200 ML BAG IV SCH (18:45)
[2018-06-06] MEDS: HYDROmorphone TAB* 4 MG PO PRN ×4 (01:03→19:57)
[2018-06-06] MEDS: HYDROmorphone INJ1* 1 MG/ML SYRINGE IV SLOW PU PRN ×7 (01:44→14:04)
[2018-06-06] MEDS: Phenylephrine INJ* 50 MG in NS 0.9% 250 ML* 245 ML IV SCH ×2 (01:47→15:09)
[2018-06-06] MEDS: Methadone TAB* 5 MG PO SCH ×3 (03:57→19:57)
[2018-06-06] MEDS: Metoprolol Tartrate TAB* 25 MG PO SCH (03:57)
[2018-06-06 04:16] LABS: ABS Basophils 0 10^3/ul (0-0.2); ABS Eosinophils 0 10^3/ul (0-0.6); ABS Lymphocytes 0.6 10^3/ul (1.0-4.8); ABS Monocytes 0.6 10^3/ul (0-0.8); ABS Nucleated RBC 0 10^3/ul; Eosinophil % 0.2 % (0-6); Hematocrit 31 % (42-52); Hemoglobin 10.4 g/dl (14.0-18.0); Lymphocyte % 9.5 % (25-47); Mean Corpuscular HGB Conc 34 g/dl (31-36); Mean Corpuscular Hemoglobin 31 pg (27-31); Mean Corpuscular Volume 91 fL (80-94); Mean Platelet Volume 6.8 um3 (7.4-10.4); Nucleated Red Blood Cells % 0.1; Platelet Count 346 10^3/ul (150-450); Red Blood Count 3.37 10^6/ul (4.00-5.40); Red Cell Distribution Width 17 % (10.5-15); White Blood Count 6.3 10^3/ul (3.5-10.8)
[2018-06-06 04:32] LABS: EGFR Non-African American 78.7 (>60)
[2018-06-06] MEDS: fentaNYL Patch Check Q Shift 1 NOTE FOLLOW UP SCH ×2 (07:30→19:29)
[2018-06-06] MEDS ORDERED: Midodrine (NF) 5 MG TAB PO PRN (07:33)
--- NOTE | 2018-06-06 07:37 | PN ---
Subjective Date of Service: 06/06/18 Interval History: f/u afib/flutter Converted from aflutter to afib overnight with easier to control HR's Now off neosynephrine diuresed well no dyspnea or palpitations tele this AM: Rate controlled afb Medications Active Medications: Digoxin (Lanoxin Tab*) 0.125 mg PO DAILY [facility] Fentanyl (Duragesic Patch 100 Mcg/Hr *) 200 mcg TRANSDERM Q72H [facility] Last Admin: 06/05/18 05:08 Dose: 200 mcg Hydromorphone HCl (Dilaudid Tab*) 16 mg PO Q8H PRN PRN Reason: PAIN Last Admin: 06/06/18 01:03 Dose: 16 mg Hydromorphone HCl (Dilaudid Inj1s*) 3 mg IV SLOW PU Q2H PRN PRN Reason: PAIN Last Admin: 06/06/18 05:57 Dose: 3 mg Phenylephrine HCl 50 mg/ (Sodium Chloride) 250 mls @ 9 mls/hr IV Q24H [facility]; Protocol Last Admin: 06/06/18 01:47 Dose: 36 mls/hr Methadone HCl (Dolophine Tab*) 5 mg PO Q8H [facility] Last Admin: 06/06/18 03:57 Dose: 5 mg Metoprolol Succinate (Toprol Xl Tab*) 75 mg PO DAILY [facility] Midodrine (Midodrine (Nf)) 5 mg PO TID PRN; Protocol PRN Reason: sbp < 90 Pharmacy Profile Note (Fentanyl Patch Check Q Shift) 1 note FOLLOW UP 0700, 1900 [facility] Last Admin: 06/06/18 07:30 Dose: 1 note Tamsulosin HCl (Flomax Cap*) 0.4 mg PO 0900 [facility] Last Admin: 06/05/18 04:18 Dose: 0.4 mg Objective Vital Signs: Temp Pulse Resp BP Pulse Ox 98.5 F 88 15 114/69 95 06/06/18 04:03 06/06/18 06:00 06/06/18 06:00 06/06/18 06:00 06/06/18 06:00 Oxygen Devices in Use Now: Nasal Cannula Appearance: chronically ill appearing, nad Ears/Nose/Mouth/Throat: Clear Oropharnyx, Mucous Membranes Moist Neck: NL Appearance and Movements; NL JVP, Trachea Midline Respiratory: Symmetrical Chest Expansion and Respiratory Effort, - - scattered crackles and coarse sounds Cardiovascular: - - tachycardic, irregular, no significant murmur Abdominal: - - no rigidity Extremities: No Clubbing, Cyanosis, - - 3+ pitting edema lower extremities Skin: No Rash or Ulcers, - - port right upper chest wall Neurological: Alert and Oriented x 3 Laboratory Results: 06/06/18 04:01 06/06/18 04:01 INR (Anticoag Therapy) 0.98 (0.77-1.02) 06/04/18 19:42 APTT 29.7 seconds (26.0-36.3) 06/04/18 19:42 Total Bilirubin 0.80 mg/dL (0.2-1.0) 06/04/18 19:42 AST 12 U/L (13-39) L 06/04/18 19:42 ALT 7 U/L (7-52) 06/04/18 19:42 Alkaline Phosphatase 91 U/L (34-104) 06/04/18 19:42 B-Natriuretic Peptide 164 pg/mL (-100) H 06/04/18 19:42 Total Protein 6.1 g/dL (6.4-8.9) L 06/04/18 19:42 Albumin 3.4 g/dL (3.2-5.2) 06/04/18 19:42 Globulin 2.7 g/dL (2-4) 06/04/18 19:42 Albumin/Globulin Ratio 1.3 (1-3) 06/04/18 19:42 Diagnostic Imaging: This admission imaging 1. Venous Dopplers with soft tissue edema without DVT bilaterally. The CT chest angiogram, which demonstrated no pulmonary embolus, no dissection or aneurysm. Multiple pulmonary masses and nodules throughout the lungs, largest right lower lobe at 4 cm, consistent with metastatic disease. Dense consolidation anteriorly in the left upper lobe. Some of this appearance is atelectasis, with the bronchus appearing abruptly occluded proximally. Extensive hilar mediastinal adenopathy, infracarinal nodes measure up to 2.9 cm short axis. Minimal pleural effusion. Small area of pleural nodularity suggesting metastatic disease. Additional right lower paraspinal mass measuring 4 cm, which appears metastatic. Sclerotic changes at T2 which are probably consistent with metastatic disease. 06/04/2018: EKG 1 - 2:1 atrial flutter EKG 2 - Atrial flutter with low QRS voltage, variable conduction 112 bpm Echo 06/05/2018: LVEF 50-55% Mild RV dysfunctio no significant valvular disease Unable to estimate PASP Small amount of fluid adjacent to RA Assessment/Plan AFlutter with difficult to control HR's now easier once in Afib, limited by low BP. Severe edema non-cardiac - Restart home toprol 75 mg po daily (ordered) - d/c home diltiazem permanently - Continue digoxin 0.125 mg po daily - Add midodrine 5 mg po TID (ordered) to allow BP for more diuresis Thank you for allowing me to participate in the cardiovascular care of this patient. Please do not hesitate to contact me with questions or concerns.
[2018-06-06] MEDS ORDERED: Ondansetron INJ* 2 MG/ML VIAL IV PRN (08:36)
[2018-06-06] MEDS ORDERED: Metoprolol Succinate XL TAB* 25 MG PO SCH (09:00)
[2018-06-06] MEDS ORDERED: Potassium Chlor TAB* 20 MEQ TAB.ER PO ONE (09:13)
[2018-06-06] MEDS ORDERED: Magnesium Sulfate 1 GM IV* 1 GM/100 ML BAG IV ONE (09:13)
[2018-06-06] MEDS ORDERED: Furosemide IV* 10 MG/ML 2 ML VIAL (20 MG) IV SLOW PU ONE (09:13)
--- NOTE | 2018-06-06 09:16 | PN ---
Date of Service: 06/06/18 Critical Care Services: 62M with afib/flutter, bph, metastatic colon cancer presents with scrotal swelling, afib with rvr. CT chest showing ROSY post obstructive pna. Has scrotal pain and swelling. Started on cardizem gtt. 06/05: Patient becoming hypotensive. Cardizem gtt stopped. Froy ordered. Cardiology consult called. 06/06: Patient converted to afib. phenylephrine off. Cardiology adjusted bp meds. Scrotal and leg edema slightly improved. Vital Signs: Temp Pulse Resp BP SpO2 FiO2 98.2 F 93 30 85/68 96 06/06/18 08:00 06/06/18 09:00 06/06/18 09:01 06/06/18 09:01 06/06/18 09:00 Physical Exam: Gen - nad heent - ncat, eomi, perrl neck - no jvd cv - s1/s2, irregular, tachy lungs - +ronch L > R abd - +colostomy gu - +scrotal swelling ext - +edema neuro - non-focal Fluid Balance (Past 24 Hours): I= O= Net Intake & Output 06/04/18 06/05/18 06/06/18 06/07/18 06:59 06:59 06:59 06:59 Intake Total 2120 1037 Output Total 2655 Balance 2120 -1618 Weight 78.6 kg 77.3 kg Intake: IV Fluids 2100 Medicated IV 20 669 Cardizem 20 102 neosynephrine 567 Oral 368 Output: Urine 680 Straight Cath 1975 Other: Estimated Void Small Small # Voids 1 A Labs: Laboratory Results - last 24 hr 06/06/18 06/06/18 04:01 04:01 WBC 6.3 RBC 3.37 L Hgb 10.4 L Hct 31 L MCV 91 MCH 31 MCHC 34 RDW 17 H Plt Count 346 MPV 6.8 L Neut % (Auto) 79.6 Lymph % (Auto) 9.5 L [place] % (Auto) 10.1 H Eos % (Auto) 0.2 Baso % (Auto) 0.6 Absolute Neuts (auto) 5.0 Absolute Lymphs (auto) 0.6 L Absolute Monos (auto) 0.6 Absolute Eos (auto) 0 Absolute Basos (auto) 0 Absolute Nucleated RBC 0 Nucleated RBC % 0.1 Sodium 137 Potassium 3.5 Chloride 102 Carbon Dioxide 28 Anion Gap 7 BUN 13 Creatinine 0.97 Est GFR ( Amer) 95.2 Est GFR (Non-Af Amer) 78.7 BUN/Creatinine Ratio 13.4 Glucose 95 Calcium 8.0 L Magnesium 1.8 L Studies: CXR 06/04 IMPRESSION: 1. MULTIPLE PARENCHYMAL MASSES MOST CONSISTENT WITH METASTATIC DISEASE TO THE LUNG GIVEN THE HISTORY OF MALIGNANCY. 2. PATCHY AIRSPACE DISEASE OF THE LEFT LUNG Doppler 06/04 IMPRESSION: Soft tissue edema without DVT in either lower extremity. CTA Chest 06/04 IMPRESSION: 1. No pulmonary embolus. No dissection or aneurysm in the chest. 2. Multiple pulmonary masses and nodules throughout the lungs, largest right lower lobe 4 cm consistent with metastatic disease. 3. Dense consolidation anteriorly in the left upper lobe. Some of this appearance is atelectasis, with the bronchus appearing abruptly occluded proximally. 4. Extensive hilar and mediastinal adenopathy. Infracarinal nodes measure up to 2.9 cm short axis. 5. Minimal pleural effusions. Small areas of pleural nodularity suggesting metastatic disease. Additional right lower paraspinal mass measuring 4 cm which appears metastatic. 6. Sclerotic changes T2 vertebral body consistent with metastatic disease. TTE 06/05 Conclusions The left ventricular chamber size is normal. There is no left ventricular hypertrophy. Left ventricular systolic function is at the lower limits of normal. The estimated ejection fraction is 50-55%. , no segmental wall motion abnormalities. Ability to estimate LVEF reduced by rapid atrial flutter at time of examination. The left atrial chamber size is normal. The right ventricular cavity size is normal. The right ventricular global systolic function is mildly reduced. No significant valvular abnormalities noted Unable to estimate the right ventricular systolic pressure. Catheter visualized in right atrium Small amount of pericardial fluid adjacent to right atrium, likely physiologic, possibly malignant related None prior for comparison at time of interpretation Impression: 62M with afib/flutter, bph, metastatic colon cancer presents with scrotal swelling, afib with rvr. CT chest showing ROSY post obstructive pna. Hypotensive and briefly on phenylephrine. Plan: Neuro - pain control CV - aflutter with rvr - cardizem discontinued for hypotension - cardiology evaluated patient - restarted home toprol xl - digoxin continued - midorine added for bp suppport Pulm - hypoxia - 2/2 pulmonary mets and post-obstructive pneumonia - supplemental o2 prn ID - post-obstructive pneumonia - empiric levaquin - f/u cultures - serial lactates GI - diet as tolerated Renal/ - scrotal swelling - 2/2 venous outflow obstruction from colon cancer vs volume overload - trial of lasix - ct scan abd/pel Heme - metastatic colon cancer - as per patient no further treatment - hospice evaluation Endo - check fs, niss Lines - port PPx - gi/dvt DNR/DNI Extensive discussions with patient and at the bedside about hospice. Patient is receptive. is concerned and wants to speak with primary oncologist. Critical Care Time: 70 mins
[2018-06-06] MEDS: CMCS:Midodrine (NF) 5 MG TAB PO SCH ×4 (09:33→19:56)
[2018-06-06] MEDS: Digoxin TAB* 0.125 MG PO SCH ×2 (09:33→09:43)
[2018-06-06] MEDS: Dronabinol CAP* 2.5 MG PO SCH ×4 (09:33→20:37)
[2018-06-06] MEDS ORDERED: Iohexol 300* (CONTRAST) 10 ML SDV IV ONE (10:07)
--- NOTE | 2018-06-06 11:29 | RAD ---
INDICATION: Colon cancer. Colostomy one year ago. CHF. Lower extremity and scrotal edema. Concern for potential IVC obstruction. COMPARISON: June 04, 2018 CT chest and bilateral lower extremity venous ultrasound. TECHNIQUE: Multidetector CT images were obtained from the lung bases to the ischial tuberosities with 100 mL Omnipaque 300 IV and oral contrast. Multiplanar reformation. REPORT: VISUALIZED INFERIOR THORAX: Small dependent pleural effusions with proportional basilar atelectasis. Large burden of bilateral pulmonary metastasis as previously documented. Negative for cardiomegaly or pericardial effusion. LIVER / GALLBLADDER / PANCREAS / SPLEEN: 2.8 x 3.7 cm hypodense lesion at the dome of the LEFT hepatic lobe suspicious for metastasis. Negative for biliary dilatation. No CT abnormality of the gallbladder, pancreas, spleen. ALIMENTARY TRACT: LEFT lower quadrant colostomy. Large rectal mass measuring up to 7.8 cm AP by 7.7 cm transverse by 13 cm cephalocaudal with direct extension to the LEFT gluteal musculature. Probable direct extension to the posterior margin of the urinary bladder. Negative for bowel obstruction. Very small volume of diffuse ascites. Negative for free air or hernias. MESENTERIC: Diffuse soft tissue edema. No mass evident. ADRENAL / GENITOURINARY: Thickened limbs of the LEFT adrenal gland most suspicious for hyperplasia. Bilateral complex appearing hypodense renal lesions suspicious for potential metastasis given the clinical context. Delayed pyelograms. Negative for obstructive uropathy. No suspicious finding along the course of the nondilated ureters. Moderately distended urinary bladder with mildly hyperdense contents consistent with persistent pyelographic phase contrast from the chest CT of 2 days prior.Bilateral hydroceles. RETROPERITONEAL: Enlarged RIGHT inguinal lymph node measuring up to 1.7 cm short axis. 1.2 cm short axis RIGHT external iliac lymph node. LEFT para-aortic lymph nodes posterior to the LEFT renal vessels measuring up to 1.1 cm short axis. Irregular-appearing 0.9 cm short axis LEFT common iliac lymph node. VASCULAR: Unremarkable abdominal aorta and iliac arteries. Normal contrast opacification of the normally dilated inferior vena cava. BONES: Negative for suspicious focal osseous lesions. SOFT TISSUE: Diffuse soft tissue edema. IMPRESSION: #. Normal contrast opacification of the normally dilated inferior vena cava without compelling suggestion of bland or tumor thrombus. #. Small dependent pleural effusions with proportional basilar atelectasis. Large burden of bilateral pulmonary metastasis as previously documented. #. Probable metastatic lesion at the dome of the LEFT hepatic lobe. #. Large rectal mass measuring up to 7.8 cm AP by 7.7 cm transverse by 13 cm cephalocaudal with direct extension to the LEFT gluteal musculature. Probable direct extension to the posterior margin of the urinary bladder. Negative for bowel obstruction. #. Only trace ascites. #. Delayed renal pyelograms concerning for potential acute renal failure. Suggestion of bilateral renal metastasis. Negative for obstructive uropathy. #. Irregular-appearing mildly enlarged retroperitoneal lymph nodes consistent with metastasis given the clinical context. #. Bilateral hydroceles. #. Diffuse soft tissue edema.
[2018-06-06] MEDS: Tamsulosin CAP* 0.4 MG PO SCH ×2 (12:43→18:12)
[2018-06-06] MEDS ORDERED: Amiodarone 360 MG IVPREMIX* 360 MG/200 ML BAG IV ONE (13:14)
[2018-06-06] MEDS ORDERED: Amiodarone 150 MG IVPREMIX* 150 MG/100 ML BAG IV ONE ×2 (13:14→13:25)
[2018-06-06] MEDS: Amiodarone 360 MG IVPREMIX* 360 MG/200 ML BAG IV ONE (13:39)
[2018-06-06] MEDS ORDERED: HYDROmorphone INJ1* 1 MG/ML SYRINGE IV SLOW PU PRN (14:50)
[2018-06-06] MEDS ORDERED: HYDROmorphone PCA* 20 MG/20 ML PCA.SYRING PCA SCH (16:00)
[2018-06-06] MEDS: HYDROmorphone PCA* 20 MG/20 ML PCA.SYRING PCA SCH ×2 (16:28→21:28)
[2018-06-06] MEDS: Amiodarone 360 MG IVPREMIX* 360 MG/200 ML BAG IV SCH (19:57)
[2018-06-07] MEDS: HYDROmorphone PCA* 20 MG/20 ML PCA.SYRING PCA SCH ×3 (02:36→22:23)
[2018-06-07] MEDS: Phenylephrine INJ* 50 MG in NS 0.9% 250 ML* 245 ML IV SCH ×2 (02:38→22:46)
[2018-06-07] MEDS: Methadone TAB* 5 MG PO SCH ×3 (04:22→21:04)
[2018-06-07] MEDS: HYDROmorphone TAB* 4 MG PO PRN (04:22)
[2018-06-07 04:41] LABS: ABS Basophils 0 10^3/ul (0-0.2); ABS Eosinophils 0 10^3/ul (0-0.6); ABS Lymphocytes 0.5 10^3/ul (1.0-4.8); ABS Monocytes 0.7 10^3/ul (0-0.8); ABS Nucleated RBC 0 10^3/ul; Eosinophil % 0.2 % (0-6); Hematocrit 28 % (42-52); Hemoglobin 9.2 g/dl (14.0-18.0); Lymphocyte % 7.2 % (25-47); Mean Corpuscular HGB Conc 33 g/dl (31-36); Mean Corpuscular Hemoglobin 30 pg (27-31); Mean Corpuscular Volume 92 fL (80-94); Mean Platelet Volume 6.9 um3 (7.4-10.4); Nucleated Red Blood Cells % 0; Platelet Count 308 10^3/ul (150-450); Red Blood Count 3.02 10^6/ul (4.00-5.40); Red Cell Distribution Width 17 % (10.5-15); White Blood Count 7.2 10^3/ul (3.5-10.8)
[2018-06-07 04:53] LABS: EGFR Non-African American 64.7 (>60)
[2018-06-07] MEDS: fentaNYL Patch Check Q Shift 1 NOTE FOLLOW UP SCH ×2 (07:37→19:20)
[2018-06-07] MEDS: Amiodarone 360 MG IVPREMIX* 360 MG/200 ML BAG IV SCH (08:05)
[2018-06-07] MEDS: Digoxin TAB* 0.125 MG PO SCH (09:20)
[2018-06-07] MEDS: CMCS:Midodrine (NF) 5 MG TAB PO SCH ×3 (09:21→21:03)
[2018-06-07] MEDS: Dronabinol CAP* 2.5 MG PO SCH ×3 (09:21→21:04)
--- NOTE | 2018-06-07 09:35 | PN ---
Date of Service: 06/07/18 Critical Care Services: 62M with afib/flutter, bph, metastatic colon cancer presents with scrotal swelling, afib with rvr. CT chest showing ROSY post obstructive pna. Started on cardizem gtt. 06/05: Patient becoming hypotensive. Cardizem gtt stopped. Froy ordered. Cardiology consult called. 06/06: Patient converted to afib. phenylephrine off. Cardiology adjusted bp meds. Scrotal and leg edema slightly improved. 06/07: Continues to have rapid rate and hypotensive on froy. 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 Patient receptive to hospice. unsure. Vital Signs: Temp Pulse Resp BP SpO2 FiO2 98.3 F 90 18 91/67 95 06/07/18 07:35 06/07/18 09:20 06/07/18 09:00 06/07/18 09:00 06/07/18 09:00 Physical Exam: Gen - nad heent - ncat, eomi, perrl neck - no jvd cv - s1/s2, irregular, tachy lungs - +ronch L > R abd - +colostomy gu - +scrotal swelling ext - +edema neuro - non-focal Fluid Balance (Past 24 Hours): I= O= Net Intake & Output 06/05/18 06/06/18 06/07/18 06/08/18 06:59 06:59 06:59 06:59 Intake Total 2120 1037 2054 Output Total 2655 1150 0 Balance 2120 -1618 904 0 Weight 78.6 kg 77.3 kg 80 kg Intake: IV Fluids 2100 152 NS 137 PB - Magnesium Sulfate 15 IVPB 100 PB - Magnesium Sulfate 100 Medicated IV 20 669 702 CC - Amiodarone 376 Cardizem 20 102 neosynephrine 567 326 Oral 368 1100 Output: Urine 680 300 0 Straight Cath 1975 850 Other: Estimated Void Small Small # Voids 1 Labs: Laboratory Results - last 24 hr 06/07/18 06/07/18 04:28 04:28 WBC 7.2 RBC 3.02 L Hgb 9.2 L Hct 28 L MCV 92 MCH 30 MCHC 33 RDW 17 H Plt Count 308 MPV 6.9 L Neut % (Auto) 82.2 Lymph % (Auto) 7.2 L [place] % (Auto) 9.7 H Eos % (Auto) 0.2 Baso % (Auto) 0.7 Absolute Neuts (auto) 6.0 Absolute Lymphs (auto) 0.5 L Absolute Monos (auto) 0.7 Absolute Eos (auto) 0 Absolute Basos (auto) 0 Absolute Nucleated RBC 0 Nucleated RBC % 0 Sodium 140 Potassium 3.9 Chloride 106 Carbon Dioxide 29 Anion Gap 5 BUN 16 Creatinine 1.15 Est GFR ( Amer) 78.2 Est GFR (Non-Af Amer) 64.7 BUN/Creatinine Ratio 13.9 Glucose 112 H Calcium 8.1 L Magnesium 1.9 Studies: CT abd/pel w contrast 06/06 IMPRESSION: #. Normal contrast opacification of the normally dilated inferior vena cava without compelling suggestion of bland or tumor thrombus. #. Small dependent pleural effusions with proportional basilar atelectasis. Large burden of bilateral pulmonary metastasis as previously documented. #. Probable metastatic lesion at the dome of the LEFT hepatic lobe. #. Large rectal mass measuring up to 7.8 cm AP by 7.7 cm transverse by 13 cm cephalocaudal with direct extension to the LEFT gluteal musculature. Probable direct extension to the posterior margin of the urinary bladder. Negative for bowel obstruction. #. Only trace ascites. #. Delayed renal pyelograms concerning for potential acute renal failure. Suggestion of bilateral renal metastasis. Negative for obstructive uropathy. #. Irregular-appearing mildly enlarged retroperitoneal lymph nodes consistent with metastasis given the clinical context. #. Bilateral hydroceles. #. Diffuse soft tissue edema. CXR 06/04 IMPRESSION: 1. MULTIPLE PARENCHYMAL MASSES MOST CONSISTENT WITH METASTATIC DISEASE TO THE LUNG GIVEN THE HISTORY OF MALIGNANCY. 2. PATCHY AIRSPACE DISEASE OF THE LEFT LUNG Doppler 06/04 IMPRESSION: Soft tissue edema without DVT in either lower extremity. CTA Chest 06/04 IMPRESSION: 1. No pulmonary embolus. No dissection or aneurysm in the chest. 2. Multiple pulmonary masses and nodules throughout the lungs, largest right lower lobe 4 cm consistent with metastatic disease. 3. Dense consolidation anteriorly in the left upper lobe. Some of this appearance is atelectasis, with the bronchus appearing abruptly occluded proximally. 4. Extensive hilar and mediastinal adenopathy. Infracarinal nodes measure up to 2.9 cm short axis. 5. Minimal pleural effusions. Small areas of pleural nodularity suggesting metastatic disease. Additional right lower paraspinal mass measuring 4 cm which appears metastatic. 6. Sclerotic changes T2 vertebral body consistent with metastatic disease. TTE 06/05 Conclusions The left ventricular chamber size is normal. There is no left ventricular hypertrophy. Left ventricular systolic function is at the lower limits of normal. The estimated ejection fraction is 50-55%. , no segmental wall motion abnormalities. Ability to estimate LVEF reduced by rapid atrial flutter at time of examination. The left atrial chamber size is normal. The right ventricular cavity size is normal. The right ventricular global systolic function is mildly reduced. No significant valvular abnormalities noted Unable to estimate the right ventricular systolic pressure. Catheter visualized in right atrium Small amount of pericardial fluid adjacent to right atrium, likely physiologic, possibly malignant related None prior for comparison at time of interpretation Impression: 62M with afib/flutter, bph, metastatic colon cancer presents with scrotal swelling, afib with rvr. CT chest showing ROSY post obstructive pna. Hypotensive and on phenylephrine. 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 CV - aflutter with rvr - cardizem discontinued for hypotension - cardiology evaluated patient - restarted home toprol xl - digoxin continued - midorine added for bp suppport - on amio/froy gtt with some improvement Pulm - hypoxia - 2/2 pulmonary mets and post-obstructive pneumonia - supplemental o2 prn ID - post-obstructive pneumonia - empiric levaquin - f/u cultures - serial lactates GI - diet as tolerated Renal/ - scrotal swelling - 2/2 venous outflow obstruction from colon cancer vs volume overload - ct showing large rectal tumor likely obstructing venous return from scrotum and lower extremities - lasix if of little benefit Heme - metastatic colon cancer - as per patient no further treatment - ct showing mets throughout abdomen and chest - patient is terminal - hospice evaluation Endo - check fs, niss Lines - port PPx - gi/dvt DNR/DNI Extensive discussions with patient and at the bedside about hospice. Patient is receptive. is concerned and wants to speak with primary oncologist. Critical Care Time: 60 mins
--- NOTE | 2018-06-07 10:16 | PN ---
Subjective Date of Service: 06/07/18 Interval History: f/u afib/flutter Now in rate controlled aflutter required amiodarone gtt in combination with neosynephrine gtt while on narcotics no lightheadedness or cp Medications Active Medications: Digoxin (Lanoxin Tab*) 0.125 mg PO DAILY [facility] Last Admin: 06/07/18 09:20 Dose: 0.125 mg Dronabinol (Marinol Cap*) 10 mg PO TID [facility] Last Admin: 06/07/18 09:21 Dose: 10 mg Fentanyl (Duragesic Patch 100 Mcg/Hr *) 200 mcg TRANSDERM Q72H [facility] Last Admin: 06/05/18 05:08 Dose: 200 mcg Hydromorphone HCl (Dilaudid Tab*) 16 mg PO Q8H PRN PRN Reason: PAIN Last Admin: 06/07/18 04:22 Dose: 16 mg Phenylephrine HCl 50 mg/ (Sodium Chloride) 250 mls @ 9 mls/hr IV Q24H [facility]; Protocol Last Admin: 06/07/18 02:38 Dose: 27 mls/hr Hydromorphone HCl (Dilaudid Payroll Coordinator*) 20 mg in 20 mls @ 0 mls/hr [employer] .change Q24H [facility]; Protocol Last Admin: 06/07/18 02:36 Dose: 2.5 mls/hr Methadone HCl (Dolophine Tab*) 5 mg PO Q8H [facility] Last Admin: 06/07/18 04:22 Dose: 5 mg Metoprolol Succinate (Toprol Xl Tab*) 75 mg PO QPM [facility] Midodrine (Midodrine (Nf)) 5 mg PO TID [facility]; Protocol Last Admin: 06/07/18 09:21 Dose: 5 mg Ondansetron HCl (Zofran Inj*) 4 mg IV Q6H PRN PRN Reason: NAUSEA Last Admin: 06/06/18 09:05 Dose: 4 mg Pharmacy Profile Note (Fentanyl Patch Check Q Shift) 1 note FOLLOW UP 0700, 1900 [facility] Last Admin: 06/07/18 07:37 Dose: 1 note Tamsulosin HCl (Flomax Cap*) 0.4 mg PO QPM [facility] Last Admin: 06/06/18 18:12 Dose: 0.4 mg Objective Vital Signs: Temp Pulse Resp BP Pulse Ox 98.3 F 90 18 91/67 95 06/07/18 07:35 06/07/18 09:20 06/07/18 09:00 06/07/18 09:00 06/07/18 09:00 Oxygen Devices in Use Now: Nasal Cannula Appearance: chronically ill appearing, nad Ears/Nose/Mouth/Throat: Clear Oropharnyx, Mucous Membranes Moist Neck: NL Appearance and Movements; NL JVP, Trachea Midline Respiratory: Symmetrical Chest Expansion and Respiratory Effort, - - scattered crackles and coarse sounds Cardiovascular: - - tachycardic, irregular, no significant murmur Abdominal: - - no rigidity Extremities: No Clubbing, Cyanosis, - - 3+ pitting edema lower extremities Skin: No Rash or Ulcers, - - port right upper chest wall Neurological: Alert and Oriented x 3 Laboratory Results: 06/07/18 04:28 06/07/18 04:28 INR (Anticoag Therapy) 0.98 (0.77-1.02) 06/04/18 19:42 APTT 29.7 seconds (26.0-36.3) 06/04/18 19:42 Total Bilirubin 0.80 mg/dL (0.2-1.0) 06/04/18 19:42 AST 12 U/L (13-39) L 06/04/18 19:42 ALT 7 U/L (7-52) 06/04/18 19:42 Alkaline Phosphatase 91 U/L (34-104) 06/04/18 19:42 B-Natriuretic Peptide 164 pg/mL (-100) H 06/04/18 19:42 Total Protein 6.1 g/dL (6.4-8.9) L 06/04/18 19:42 Albumin 3.4 g/dL (3.2-5.2) 06/04/18 19:42 Globulin 2.7 g/dL (2-4) 06/04/18 19:42 Albumin/Globulin Ratio 1.3 (1-3) 06/04/18 19:42 Diagnostic Imaging: This admission imaging 1. Venous Dopplers with soft tissue edema without DVT bilaterally. The CT chest angiogram, which demonstrated no pulmonary embolus, no dissection or aneurysm. Multiple pulmonary masses and nodules throughout the lungs, largest right lower lobe at 4 cm, consistent with metastatic disease. Dense consolidation anteriorly in the left upper lobe. Some of this appearance is atelectasis, with the bronchus appearing abruptly occluded proximally. Extensive hilar mediastinal adenopathy, infracarinal nodes measure up to 2.9 cm short axis. Minimal pleural effusion. Small area of pleural nodularity suggesting metastatic disease. Additional right lower paraspinal mass measuring 4 cm, which appears metastatic. Sclerotic changes at T2 which are probably consistent with metastatic disease. 06/04/2018: EKG 1 - 2:1 atrial flutter EKG 2 - Atrial flutter with low QRS voltage, variable conduction 112 bpm Echo 06/05/2018: LVEF 50-55% Mild RV dysfunctio no significant valvular disease Unable to estimate PASP Small amount of fluid adjacent to RA Assessment/Plan AFlutter with difficult to control HR's has been easier once in Afib, limited by low BP. Severe edema non-cardiac in the setting of widespread, endstage metastatic colon cancer - Would give home toprol 75 mg po dose today (was held yesterday) - d/c home diltiazem permanently - Continue digoxin 0.125 mg po daily - Continue midodrine 5 mg po TID to allow BP for more diuresis - Amiodarone gtt is helping control HR's but obviously not a usp solution , unlikely oral would have as good of an effect but can attempt Thank you for allowing me to participate in the cardiovascular care of this patient. Please do not hesitate to contact me with questions or concerns.
[2018-06-07] MEDS ORDERED: Furosemide IV* 10 MG/ML 2 ML VIAL (20 MG) IV SLOW PU ONE (11:53)
[2018-06-07] MEDS: Tamsulosin CAP* 0.4 MG PO SCH (17:38)
[2018-06-07] MEDS: Metoprolol Succinate XL TAB* 25 MG PO SCH (17:38)
[2018-06-08] MEDS: fentaNYL PATCHs 100 MCG/HR TRANSDERM SCH (04:20)
[2018-06-08] MEDS: Methadone TAB* 5 MG PO SCH ×3 (04:20→21:00)
[2018-06-08] MEDS: HYDROmorphone PCA* 20 MG/20 ML PCA.SYRING PCA SCH ×3 (04:43→22:21)
[2018-06-08 06:02] LABS: ABS Basophils 0 10^3/ul (0-0.2); ABS Eosinophils 0 10^3/ul (0-0.6); ABS Lymphocytes 0.4 10^3/ul (1.0-4.8); ABS Monocytes 0.6 10^3/ul (0-0.8); ABS Neutrophils 5.1 10^3/ul (1.5-7.7); ABS Nucleated RBC 0 10^3/ul; Eosinophil % 0.3 % (0-6); Hematocrit 26 % (42-52); Hemoglobin 8.7 g/dl (14.0-18.0); Lymphocyte % 6.1 % (25-47); Mean Corpuscular HGB Conc 34 g/dl (31-36); Mean Corpuscular Hemoglobin 31 pg (27-31); Mean Corpuscular Volume 91 fL (80-94); Mean Platelet Volume 6.7 um3 (7.4-10.4); Nucleated Red Blood Cells % 0; Platelet Count 260 10^3/ul (150-450); Red Blood Count 2.84 10^6/ul (4.00-5.40); Red Cell Distribution Width 18 % (10.5-15); White Blood Count 6.1 10^3/ul (3.5-10.8)
[2018-06-08 06:20] LABS: EGFR Non-African American 82.6 (>60)
[2018-06-08] MEDS: fentaNYL Patch Check Q Shift 1 NOTE FOLLOW UP SCH ×2 (06:53→19:23)
[2018-06-08] MEDS: CMCS:Midodrine (NF) 5 MG TAB PO SCH ×3 (08:33→21:01)
[2018-06-08] MEDS: Dronabinol CAP* 2.5 MG PO SCH ×3 (08:33→21:00)
[2018-06-08] MEDS: Amiodarone TAB* 400 MG PO SCH (08:34)
[2018-06-08] MEDS: Digoxin TAB* 0.125 MG PO SCH (08:34)
--- NOTE | 2018-06-08 09:19 | PN ---
Date of Service: 06/08/18 Critical Care Services: 62M with afib/flutter, bph, metastatic colon cancer presents with scrotal swelling, afib with rvr. CT chest showing ROSY post obstructive pna. Started on cardizem gtt. 06/05: Patient becoming hypotensive. Cardizem gtt stopped. Froy ordered. Cardiology consult called. 06/06: Patient converted to afib. phenylephrine off. Cardiology adjusted bp meds. Scrotal and leg edema slightly improved. 06/07: Continues to have rapid rate and hypotensive on froy. Pain better controlled on dilaudid deliverer food. Patient receptive to hospice. unsure. 06/08: hr better controlled. weaning froy. still hypoxic. Vital Signs: Temp Pulse Resp BP SpO2 FiO2 98.3 F 111 18 112/57 92 06/08/18 07:53 06/08/18 08:45 06/08/18 08:45 06/08/18 08:30 06/08/18 08:45 Physical Exam: Gen - nad heent - ncat, eomi, perrl neck - no jvd cv - s1/s2, irregular, tachy lungs - +ronch L > R abd - +colostomy gu - +scrotal swelling ext - +edema neuro - non-focal Fluid Balance (Past 24 Hours): I= O= Net Intake & Output 06/06/18 06/07/18 06/08/18 06/09/18 06:59 06:59 06:59 06:59 Intake Total 1037 2054 1314.5 Output Total 2655 1150 925 200 Balance -1618 904 389.5 -200 Weight 77.3 kg 80 kg 82.4 kg Intake: IV Fluids 152 236.5 NS 137 236.5 PB - Magnesium Sulfate 15 IVPB 100 PB - Magnesium Sulfate 100 Medicated IV 669 702 501 CC - Amiodarone 376 128 Cardizem 102 neosynephrine 567 326 373 IV Narcotic Infusion 17 Hydromorphone 17 Oral 368 1100 560 Output: Urine 680 300 625 200 Straight Cath 1975 850 300 Other: Estimated Void Small # Voids 1 Labs: Laboratory Results - last 24 hr 06/08/18 06/08/18 05:50 05:50 WBC 6.1 RBC 2.84 L Hgb 8.7 L Hct 26 L MCV 91 MCH 31 MCHC 34 RDW 18 H Plt Count 260 MPV 6.7 L Neut % (Auto) 83.7 H Lymph % (Auto) 6.[address] [place] % (Auto) 9.4 H Eos % (Auto) 0.3 Baso % (Auto) 0.5 Absolute Neuts (auto) 5.1 Absolute Lymphs (auto) 0.4 L Absolute Monos (auto) 0.6 Absolute Eos (auto) 0 Absolute Basos (auto) 0 Absolute Nucleated RBC 0 Nucleated RBC % 0 Sodium 140 Potassium 3.7 Chloride 105 Carbon Dioxide 30 Anion Gap 5 BUN 15 Creatinine 0.93 Est GFR ( Amer) 99.9 Est GFR (Non-Af Amer) 82.6 BUN/Creatinine Ratio 16.1 Glucose 105 H Calcium 7.9 L Magnesium 1.9 Studies: CT abd/pel w contrast 06/06 IMPRESSION: #. Normal contrast opacification of the normally dilated inferior vena cava without compelling suggestion of bland or tumor thrombus. #. Small dependent pleural effusions with proportional basilar atelectasis. Large burden of bilateral pulmonary metastasis as previously documented. #. Probable metastatic lesion at the dome of the LEFT hepatic lobe. #. Large rectal mass measuring up to 7.8 cm AP by 7.7 cm transverse by 13 cm cephalocaudal with direct extension to the LEFT gluteal musculature. Probable direct extension to the posterior margin of the urinary bladder. Negative for bowel obstruction. #. Only trace ascites. #. Delayed renal pyelograms concerning for potential acute renal failure. Suggestion of bilateral renal metastasis. Negative for obstructive uropathy. #. Irregular-appearing mildly enlarged retroperitoneal lymph nodes consistent with metastasis given the clinical context. #. Bilateral hydroceles. #. Diffuse soft tissue edema. CXR 06/04 IMPRESSION: 1. MULTIPLE PARENCHYMAL MASSES MOST CONSISTENT WITH METASTATIC DISEASE TO THE LUNG GIVEN THE HISTORY OF MALIGNANCY. 2. PATCHY AIRSPACE DISEASE OF THE LEFT LUNG Doppler 06/04 IMPRESSION: Soft tissue edema without DVT in either lower extremity. CTA Chest 06/04 IMPRESSION: 1. No pulmonary embolus. No dissection or aneurysm in the chest. 2. Multiple pulmonary masses and nodules throughout the lungs, largest right lower lobe 4 cm consistent with metastatic disease. 3. Dense consolidation anteriorly in the left upper lobe. Some of this appearance is atelectasis, with the bronchus appearing abruptly occluded proximally. 4. Extensive hilar and mediastinal adenopathy. Infracarinal nodes measure up to 2.9 cm short axis. 5. Minimal pleural effusions. Small areas of pleural nodularity suggesting metastatic disease. Additional right lower paraspinal mass measuring 4 cm which appears metastatic. 6. Sclerotic changes T2 vertebral body consistent with metastatic disease. TTE 06/05 Conclusions The left ventricular chamber size is normal. There is no left ventricular hypertrophy. Left ventricular systolic function is at the lower limits of normal. The estimated ejection fraction is 50-55%. , no segmental wall motion abnormalities. Ability to estimate LVEF reduced by rapid atrial flutter at time of examination. The left atrial chamber size is normal. The right ventricular cavity size is normal. The right ventricular global systolic function is mildly reduced. No significant valvular abnormalities noted Unable to estimate the right ventricular systolic pressure. Catheter visualized in right atrium Small amount of pericardial fluid adjacent to right atrium, likely physiologic, possibly malignant related None prior for comparison at time of interpretation Impression: 62M with afib/flutter, bph, metastatic colon cancer presents with scrotal swelling, afib with rvr. CT chest showing ROSY post obstructive pna. Hypotensive and on phenylephrine. Plan: Neuro - - pain better controlled on dilaudid deliverer food - will consult pain management for transition to home regimen CV - aflutter with rvr - cardizem discontinued for hypotension - c/w toprol/dig/amio for rate control - c/w midodrine - weaning froy - lasix prn edema Pulm - hypoxia - 2/2 pulmonary mets and post-obstructive pneumonia - supplemental o2 prn ID - post-obstructive pneumonia - empiric levaquin - f/u cultures - serial lactates GI - diet as tolerated Renal/ - scrotal swelling - 2/2 venous outflow obstruction from colon cancer vs volume overload - ct showing large rectal tumor likely obstructing venous return from scrotum and lower extremities Heme - metastatic colon cancer - as per patient no further treatment - ct showing mets throughout abdomen and chest - patient is terminal - hospice evaluation Endo - check fs, niss Lines - port PPx - gi/dvt DNR/DNI Discharge planning. Hospice most appropriate. Critical Care Time: 50 mins
--- NOTE | 2018-06-08 14:31 | CONSULT ---
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 Since then he has pursued numerous regimens but none have been successful in curbing the growth of this aggressive neoplasm. His says he had no new sites of metastatic disease when last scanned a month or two ago, but on this admission he is found to have increased pulmonary metastatic involvement, and new metastases in the liver, adrenal, ingiuinal nodes and spine at T2. He also has a large rectal mass impinging on the bladder and probably contributing to obstruction creating LE edema. His pain management has been particularly challenging. He is currently on Methadone 5 mg TID, Fentanyl 200 mcg patch, Dilaudid 2.5 mg Q hour,with Dilaudid 16 mg po Q8h prn doses. He tellsme he still has pain at a 8/10 level. He has an appointment at [facility], where he has received all his oncologic care, on 06/11/18 to have an intrathecal catheter implanted for pump analgesia. His is very determined to have this option kept open. The patient arrived at the ER last week with CC of SOB and edema. He was found to be in AFib, wich has been present for many years, per his , but he now had RVR with HR 150-170, and with diltiazem and beta blockade his HR did not normalize and he became hypotensive. With careful oversight by Dr. Arturo Pierre , the patient has now been fairly stable with diltiazem d/c'd (d/t hypotensive effect) and on digoxin, amiodarone and neosynephrine gtts. I noted that with conversation and with orthostatic challenge, sitting up and standing, his HR sixto to 155. He is quite anemic and his nutritional status is not good because he has uncontrolled nausea and vomiting due to his opiates, especially orally administered, and his albumin is low normal at 3.4. The patient is interested in limiting any further life-prolonging procedures, and wants to return home to there. Lab Values: Abnormal Lab Results 06/08/18 06/08/18 05:50 05:50 WBC 6.1 RBC 2.84 L Hgb 8.7 L Hct 26 L MCV 91 MCH 31 MCHC 34 RDW 18 H Plt Count 260 MPV 6.7 L Neut % (Auto) 83.7 H Lymph % (Auto) 6.1 L [place] % (Auto) 9.4 H Eos % (Auto) 0.3 Baso % (Auto) 0.5 Absolute Neuts (auto) 5.1 Absolute Lymphs (auto) 0.4 L Absolute Monos (auto) 0.6 Absolute Eos (auto) 0 Absolute Basos (auto) 0 Absolute Nucleated RBC 0 Nucleated RBC % 0 Sodium 140 Potassium 3.7 Chloride 105 Carbon Dioxide 30 Anion Gap 5 BUN 15 Creatinine 0.93 Est GFR ( Amer) 99.9 Est GFR (Non-Af Amer) 82.6 BUN/Creatinine Ratio 16.1 Glucose 105 H Calcium 7.9 L Magnesium 1.9 Laboratory Last Values WBC 6.1 10^3/ul (3.5-10.8) 06/08/18 05:50 RBC 2.84 10^6/ul (4.00-5.40) L 06/08/18 05:50 Hgb 8.7 g/dl (14.0-18.0) L 06/08/18 05:50 Hct 26 % (42-52) L 06/08/18 05:50 MCV 91 fL (80-94) 06/08/18 05:50 MCH 31 pg (27-31) 06/08/18 05:50 MCHC 34 g/dl (31-36) 06/08/18 05:50 RDW 18 % (10.5-15) H 06/08/18 05:50 Plt Count 260 10^3/ul (150-450) 06/08/18 05:50 MPV 6.7 um3 (7.4-10.4) L 06/08/18 05:50 Neut % (Auto) 83.7 % (38-83) H 06/08/18 05:50 Lymph % (Auto) 6.1 % (25-47) L 06/08/18 05:50 [place] % (Auto) 9.4 % (0-7) H 06/08/18 05:50 Eos % (Auto) 0.3 % (0-6) 06/08/18 05:50 Baso % (Auto) 0.5 % (0-2) 06/08/18 05:50 Absolute Neuts (auto) 5.1 10^3/ul (1.5-7.7) 06/08/18 05:50 Absolute Lymphs (auto) 0.4 10^3/ul (1.0-4.8) L 06/08/18 05:50 Absolute Monos (auto) 0.6 10^3/ul (0-0.8) 06/08/18 05:50 Absolute Eos (auto) 0 10^3/ul (0-0.6) 06/08/18 05:50 Absolute Basos (auto) 0 10^3/ul (0-0.2) 06/08/18 05:50 Absolute Nucleated RBC 0 10^3/ul 06/08/18 05:50 Nucleated RBC % 0 06/08/18 05:50 INR (Anticoag Therapy) 0.98 (0.77-1.02) 06/04/18 19:42 APTT 29.7 seconds (26.0-36.3) 06/04/18 19:42 Sodium 140 mmol/L (135-145) 06/08/18 05:50 Potassium 3.7 mmol/L (3.5-5.0) 06/08/18 05:50 Chloride 105 mmol/L (101-111) 06/08/18 05:50 Carbon Dioxide 30 mmol/L (22-32) 06/08/18 05:50 Anion Gap 5 mmol/L (2-11) 06/08/18 05:50 BUN 15 mg/dL (6-24) 06/08/18 05:50 Creatinine 0.93 mg/dL (0.67-1.17) 06/08/18 05:50 Est GFR ( Amer) 99.9 (>60) 06/08/18 05:50 Est GFR (Non-Af Amer) 82.6 (>60) 06/08/18 05:50 BUN/Creatinine Ratio 16.1 (8-20) 06/08/18 05:50 Glucose 105 mg/dL (70-100) H 06/08/18 05:50 Calcium 7.9 mg/dL (8.6-10.3) L 06/08/18 05:50 Magnesium 1.9 mg/dL (1.9-2.7) 06/08/18 05:50 Total Bilirubin 0.80 mg/dL (0.2-1.0) 06/04/18 19:42 AST 12 U/L (13-39) L 06/04/18 19:42 ALT 7 U/L (7-52) 06/04/18 19:42 Alkaline Phosphatase 91 U/L (34-104) 06/04/18 19:42 B-Natriuretic Peptide 164 pg/mL (-100) H 06/04/18 19:42 Total Protein 6.1 g/dL (6.4-8.9) L 06/04/18 19:42 Albumin 3.4 g/dL (3.2-5.2) 06/04/18 19:42 Globulin 2.7 g/dL (2-4) 06/04/18 19:42 Albumin/Globulin Ratio 1.3 (1-3) 06/04/18 19:42 Digoxin Cancelled 06/05/18 05:30 - Objective Active Medications: Amiodarone HCl (Cordarone Tab*) 400 mg PO DAILY [facility] Last Admin: 06/08/18 08:34 Dose: 400 mg Digoxin (Lanoxin Tab*) 0.125 mg PO DAILY [facility] Last Admin: 06/08/18 08:34 Dose: 0.125 mg Dronabinol (Marinol Cap*) 10 mg PO TID [facility] Last Admin: 06/08/18 13:36 Dose: 10 mg Fentanyl (Duragesic Patch 100 Mcg/Hr *) 200 mcg TRANSDERM Q72H [facility] Last Admin: 06/08/18 04:20 Dose: 200 mcg Hydromorphone HCl (Dilaudid Tab*) 16 mg PO Q8H PRN PRN Reason: PAIN Last Admin: 06/07/18 04:22 Dose: 16 mg Phenylephrine HCl 50 mg/ (Sodium Chloride) 250 mls @ 9 mls/hr IV Q24H [facility]; Protocol Last Admin: 06/07/18 22:46 Dose: 9 mls/hr Hydromorphone HCl (Dilaudid [employer]*) 20 mg in 20 mls @ 0 mls/hr [employer] .change Q24H [facility]; Protocol Last Admin: 06/08/18 04:43 Dose: 2.5 mls/hr Methadone HCl (Dolophine Tab*) 5 mg PO Q8H [facility] Last Admin: 06/08/18 13:36 Dose: 5 mg Metoprolol Succinate (Toprol Xl Tab*) 75 mg PO QPM [facility] Last Admin: 06/07/18 17:38 Dose: 75 mg Midodrine (Midodrine (Nf)) 5 mg PO TID [facility]; Protocol Last Admin: 06/08/18 13:36 Dose: 5 mg Ondansetron HCl (Zofran Inj*) 4 mg IV Q6H PRN PRN Reason: NAUSEA Last Admin: 06/06/18 09:05 Dose: 4 mg Pharmacy Profile Note (Fentanyl Patch Check Q Shift) 1 note FOLLOW UP 0700, 1900 [facility] Last Admin: 06/08/18 06:53 Dose: 1 note Tamsulosin HCl (Flomax Cap*) 0.4 mg PO QPM [facility] Last Admin: 06/07/18 17:38 Dose: 0.4 mg Vital Signs: Vital Signs: Temp Pulse Resp BP Pulse Ox 98.8 F 113 14 102/65 96 06/08/18 12:00 06/08/18 13:45 06/08/18 13:45 06/08/18 13:30 06/08/18 13:45 Patient Weight: Weight 181 lb 10.574 oz Intake and Output: Intake & Output 06/06/18 06/07/18 06/08/18 06/09/18 06:59 06:59 06:59 06:59 Intake Total 1037 2054 1314.5 137 Output Total 2655 1150 925 200 Balance -1618 904 389.5 -63 Weight 170 lb 6.677 oz 176 lb 5.917 oz 181 lb 10.574 oz Intake: IV Fluids 152 236.5 NS 137 236.5 PB - Magnesium Sulfate 15 IVPB 100 PB - Magnesium Sulfate 100 Medicated IV 669 702 501 CC - Amiodarone 376 128 Cardizem 102 neosynephrine 567 326 373 IV Narcotic Infusion 17 17 Hydromorphone 17 17 Oral 368 1100 560 120 Output: Urine 680 300 625 200 Straight Cath 1975 850 300 Other: Estimated Void Small # Voids 1 ADLs: Meal Record Start: 06/05/18 02: 41 Freq: 09,13,18 Status: Active Protocol: Created 06/05/18 02:41 System (Rec: 06/05/18 02:41 System ICU-C07) Document 06/05/18 14:00 [id number] (Rec: 06/05/18 14:00 [id number]) Document 06/05/18 19:23 [id number] (Rec: 06/05/18 19:24 [id number] ICU-C07) Document 06/06/18 09:00 [id number] (Rec: 06/06/18 19:55 [id number]) Document 06/06/18 13:00 [id number] (Rec: 06/06/18 19:55 [id number]) Document 06/06/18 18:00 [id number] (Rec: 06/06/18 19:55 [id number]) Document 06/07/18 09:00 [id number] (Rec: 06/07/18 10:45 [id number] ICU-C07) Document 06/07/18 13:00 [id number] (Rec: 06/07/18 13:38 [id number] ICU-C07) Document 06/08/18 09:00 [id number] (Rec: 06/08/18 09:36 [id number] ICU-C07) Intake and Output Start: 06/04/18 17: 34 Freq: Status: Active Protocol: Created 06/04/18 17:34 System (Rec: 06/04/18 17:34 System ED-C24) Intake and Output Start: 06/05/18 02: 41 Freq: Q4HR Status: Active Protocol: Created 06/05/18 02:41 System (Rec: 06/05/18 02:41 System ICU-C07) Document 06/05/18 06:25 [id number] (Rec: 06/05/18 06:25 [id number] ICU-C07) Document 06/05/18 08:00 [id number] (Rec: 06/05/18 08:48 [id number] ICU-C07) Document 06/05/18 12:00 [id number] (Rec: 06/05/18 12:14 [id number] ICU-C07) Document 06/05/18 13:34 [id number] (Rec: 06/05/18 13:34 [id number]) Document 06/05/18 16:00 [id number] (Rec: 06/05/18 16:09 [id number] ICU-C07) Document 06/05/18 19:24 [id number] (Rec: 06/05/18 19:24 [id number] ICU-C07) Document 06/05/18 21:50 ENB1070 (Rec: 06/05/18 21:50 [id number] ICU-C07) Document 06/06/18 00:00 [id number] (Rec: 06/06/18 00:07 [id number] ICU-C07) Document 06/06/18 04:00 WSI9716 (Rec: 06/06/18 04:03 [id number] ICU-C07) Document 06/06/18 08:00 FZN5792 (Rec: 06/06/18 09:18 [id number] ICU-C07) Document 06/06/18 09:41 [id number] (Rec: 06/06/18 09:41 [id number] ICU-C07) Document 06/06/18 12:00 AXQ5425 (Rec: 06/06/18 19:59 [id number]) Document 06/06/18 16:00 TJE6008 (Rec: 06/06/18 19:59 [id number]) Document 06/06/18 20:00 OXG3984 (Rec: 06/06/18 20:56 [id number] ICU-C07) Document 06/07/18 00:00 XJY1702 (Rec: 06/07/18 00:32 [id number] ICU-C07) Document 06/07/18 08:00 YBI1574 (Rec: 06/07/18 08:30 EPS1869 ICU-C07) Document 06/07/18 11:28 FFL3301 (Rec: 06/07/18 11:28 [id number] ICU-C07) Document 06/07/18 12:00 FMT8445 (Rec: 06/07/18 12:25 [id number] ICU-C07) Document 06/07/18 15:23 UMI0201 (Rec: 06/07/18 15:23 [id number] ICU-C07) Document 06/07/18 16:00 CDE6957 (Rec: 06/07/18 16:20 [id number] ICU-C07) Document 06/07/18 20:00 [id number] (Rec: 06/07/18 21:09 [id number] ICU-C07) Document 06/07/18 23:33 FGZ8760 (Rec: 06/07/18 23:42 [id number] ICU-C07) Document 06/08/18 03:34 [id number] (Rec: 06/08/18 03:44 [id number] ICU-C07) Document 06/08/18 05:46 [id number] (Rec: 06/08/18 05:47 [id number] ICU-C07) Document 06/08/18 07:50 [id number] (Rec: 06/08/18 07:50 [id number] ICU-C07) Document 06/08/18 08:45 [id number] (Rec: 06/08/18 08:46 [id number] ICU-C07) Document 06/08/18 12:00 [id number] (Rec: 06/08/18 12:15 [id number] ICU-C07) General Impression: Pale, lethargic man lying in bed with no evidence of severe distress despite claiming 8/10 pain. No evident dyspnea. Head: Symmetrical Eyes: No Scleral Icterus Ears/Nose/Mouth/Throat: Mucous Membranes Moist Neck: Trachea Midline Cardiovascular: - - Currently atrial fluter with HR 110 at rest, 3+ pitting edema to inguinal region. Respiratory: Symmetrical Chest Expansion and Respiratory Effort Extremities: No Clubbing, Cyanosis Neurological: Alert and Oriented x 3 - Able to converse but lethargic. Other Findings: Enlarged scrotal sac d/t fluid retention.Patient is unable to sit with any comfort. - Assessment Assessment: This patient had no advanced directives, so in the course of my assessment we completed a MOLST. The patient is very interested in hospice and comfort measures at home, and has the somewhat reluctant concurrence of his . She is eager to have an intrathecal catheter placed for pain control, and [facility] [place] [facility] [place] I [place] Dr. Weston about the availability of this procedure locally, and he very kindly offered to contact the patient[place] [facility] [place]bling [place] painter, Dr. Clemons, to discuss. It is not at all clear that the patient would be medically cleared for this surgical procedure at this point. The patient has widespread metastatic disease as well as complicating AF with RVR and hypotension, and has a prognosis of well under 6 months (I would estimate 3 months at best) despite a fairly good PPS of 60% at present. He does qualify for hospice on the basis of his metastatic colon cancer, with a secondary of CHF. However, hospice nurses are not trained to manage intrathecal catheters and medication administration, so he would be unable to be a hospice patient here if he pursues that route. I will keep in touch with the patient and his concerning their options. I think the patient could return home on hospice services with an IV pump for Dilaudid administration. Thanks for asking me to be involved in the complicated patient's care. - Plan Consult Plan (MU): Hospice - Time On Unit Date of Evaluation: 06/08/18 Hospice Consult Time in: 11:30 - 90 minutes spent F2F w/patient and his Hospice Consult Time Out: 13:30 Hospice Consult Time Total: 120 > 50% of Time Spend In Counseling or Coordinating Care: Yes
[2018-06-08] MEDS: Tamsulosin CAP* 0.4 MG PO SCH (18:07)
[2018-06-08] MEDS: Metoprolol Succinate XL TAB* 25 MG PO SCH (18:08)
[2018-06-08] MEDS ORDERED: Polyethylene Glycol 3350* 17 GM PACKET PO PRN (20:15)
[2018-06-08] MEDS: Senna TAB PO SCH (21:00)
[2018-06-08] MEDS: Docusate CAP* 100 MG PO SCH (21:01)
[2018-06-09] MEDS: Phenylephrine INJ* 50 MG in NS 0.9% 250 ML* 245 ML IV SCH (00:47)
[2018-06-09] MEDS: Methadone TAB* 5 MG PO SCH ×3 (02:59→20:08)
[2018-06-09] MEDS: HYDROmorphone TAB* 4 MG PO PRN ×2 (02:59→03:45)
[2018-06-09] MEDS: HYDROmorphone PCA* 20 MG/20 ML PCA.SYRING PCA SCH ×4 (03:48→20:32)
[2018-06-09] MEDS: Docusate CAP* 100 MG PO SCH ×3 (07:19→21:39)
[2018-06-09] MEDS: fentaNYL Patch Check Q Shift 1 NOTE FOLLOW UP SCH ×2 (07:31→19:06)
[2018-06-09] MEDS: Amiodarone TAB* 400 MG PO SCH (09:54)
[2018-06-09] MEDS: Digoxin TAB* 0.125 MG PO SCH (09:55)
[2018-06-09] MEDS: Dronabinol CAP* 2.5 MG PO SCH ×3 (09:55→21:39)
[2018-06-09] MEDS: CMCS:Midodrine (NF) 5 MG TAB PO SCH ×3 (09:55→21:39)
--- NOTE | 2018-06-09 10:23 | PN ---
Date of Service: 06/09/18 Critical Care Services: 62M with afib/flutter, bph, metastatic colon cancer presents with scrotal swelling, afib with rvr. CT chest showing ROSY post obstructive pna. Started on cardizem gtt. 06/05: Patient becoming hypotensive. Cardizem gtt stopped. Froy ordered. Cardiology consult called. 06/06: Patient converted to afib. phenylephrine off. Cardiology adjusted bp meds. Scrotal and leg edema slightly improved. 06/07: Continues to have rapid rate and hypotensive on froy. 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 Patient receptive to hospice. unsure. 06/08: hr better controlled. weaning froy. still hypoxic. 06/09: Seen by palliative care yesterday. Continuing to work to resolution of goals of care. Vital Signs: Temp Pulse Resp BP SpO2 FiO2 98.3 F 77 15 97/65 96 06/09/18 07:43 06/09/18 09:55 06/09/18 08:00 06/09/18 08:00 06/09/18 08:00 Physical Exam: Gen - nad heent - ncat, eomi, perrl neck - no jvd cv - s1/s2, irregular, tachy lungs - +ronch L > R abd - +colostomy gu - +scrotal swelling ext - +edema neuro - non-focal Fluid Balance (Past 24 Hours): I= O= Net Intake & Output 06/07/18 06/08/18 06/09/18 06/10/18 06:59 06:59 06:59 06:59 Intake Total 2054 1314.5 799 155 Output Total 1150 925 250 100 Balance 904 389.5 549 55 Weight 80 kg 82.4 kg 81.2 kg Intake: IV Fluids 152 236.5 173 75 NS 137 236.5 173 75 PB - Magnesium Sulfate 15 IVPB 100 PB - Magnesium Sulfate 100 Medicated IV 702 501 101 80 CC - Amiodarone 376 128 neosynephrine 326 373 101 80 IV Narcotic Infusion 17 35 Hydromorphone 17 35 Oral 1100 560 490 0 Output: Urine 300 625 250 100 Straight Cath 850 300 Other: Estimated Void Medium Studies: CT abd/pel w contrast 06/06 IMPRESSION: #. Normal contrast opacification of the normally dilated inferior vena cava without compelling suggestion of bland or tumor thrombus. #. Small dependent pleural effusions with proportional basilar atelectasis. Large burden of bilateral pulmonary metastasis as previously documented. #. Probable metastatic lesion at the dome of the LEFT hepatic lobe. #. Large rectal mass measuring up to 7.8 cm AP by 7.7 cm transverse by 13 cm cephalocaudal with direct extension to the LEFT gluteal musculature. Probable direct extension to the posterior margin of the urinary bladder. Negative for bowel obstruction. #. Only trace ascites. #. Delayed renal pyelograms concerning for potential acute renal failure. Suggestion of bilateral renal metastasis. Negative for obstructive uropathy. #. Irregular-appearing mildly enlarged retroperitoneal lymph nodes consistent with metastasis given the clinical context. #. Bilateral hydroceles. #. Diffuse soft tissue edema. CXR 06/04 IMPRESSION: 1. MULTIPLE PARENCHYMAL MASSES MOST CONSISTENT WITH METASTATIC DISEASE TO THE LUNG GIVEN THE HISTORY OF MALIGNANCY. 2. PATCHY AIRSPACE DISEASE OF THE LEFT LUNG Doppler 06/04 IMPRESSION: Soft tissue edema without DVT in either lower extremity. CTA Chest 06/04 IMPRESSION: 1. No pulmonary embolus. No dissection or aneurysm in the chest. 2. Multiple pulmonary masses and nodules throughout the lungs, largest right lower lobe 4 cm consistent with metastatic disease. 3. Dense consolidation anteriorly in the left upper lobe. Some of this appearance is atelectasis, with the bronchus appearing abruptly occluded proximally. 4. Extensive hilar and mediastinal adenopathy. Infracarinal nodes measure up to 2.9 cm short axis. 5. Minimal pleural effusions. Small areas of pleural nodularity suggesting metastatic disease. Additional right lower paraspinal mass measuring 4 cm which appears metastatic. 6. Sclerotic changes T2 vertebral body consistent with metastatic disease. TTE 06/05 Conclusions The left ventricular chamber size is normal. There is no left ventricular hypertrophy. Left ventricular systolic function is at the lower limits of normal. The estimated ejection fraction is 50-55%. , no segmental wall motion abnormalities. Ability to estimate LVEF reduced by rapid atrial flutter at time of examination. The left atrial chamber size is normal. The right ventricular cavity size is normal. The right ventricular global systolic function is mildly reduced. No significant valvular abnormalities noted Unable to estimate the right ventricular systolic pressure. Catheter visualized in right atrium Small amount of pericardial fluid adjacent to right atrium, likely physiologic, possibly malignant related None prior for comparison at time of interpretation Impression: 62M with afib/flutter, bph, metastatic colon cancer presents with scrotal swelling, afib with rvr. CT chest showing ROSY post obstructive pna. Hypotensive and on phenylephrine. 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 CV - aflutter with rvr - cardizem discontinued for hypotension - c/w toprol/dig/amio for rate control - c/w midodrine - weaning froy - lasix prn edema Pulm - hypoxia - 2/2 pulmonary mets and post-obstructive pneumonia - supplemental o2 prn ID - post-obstructive pneumonia - empiric levaquin - f/u cultures - serial lactates GI - diet as tolerated Renal/ - scrotal swelling - 2/2 venous outflow obstruction from colon cancer vs volume overload - ct showing large rectal tumor likely obstructing venous return from scrotum and lower extremities Heme - metastatic colon cancer - as per patient no further treatment - ct showing mets throughout abdomen and chest - patient is terminal - hospice evaluation Endo - check fs, niss Lines - port PPx - gi/dvt DNR/DNI Discharge planning. Hospice most appropriate. Critical Care Time: 40 mins
[2018-06-09] MEDS: Metoprolol Succinate XL TAB* 25 MG PO SCH (17:56)
[2018-06-09] MEDS: Tamsulosin CAP* 0.4 MG PO SCH (17:56)
[2018-06-09] MEDS: Senna TAB PO SCH (21:40)
[2018-06-10] MEDS: HYDROmorphone PCA* 20 MG/20 ML PCA.SYRING PCA SCH ×2 (02:15→07:53)
[2018-06-10] MEDS: Docusate CAP* 100 MG PO SCH (05:34)
[2018-06-10] MEDS: Methadone TAB* 5 MG PO SCH (05:34)
[2018-06-10] MEDS: fentaNYL Patch Check Q Shift 1 NOTE FOLLOW UP SCH (07:24)
[2018-06-10] MEDS: Phenylephrine INJ* 50 MG in NS 0.9% 250 ML* 245 ML IV SCH (07:35)
[2018-06-10] MEDS: Dronabinol CAP* 2.5 MG PO SCH (07:47)
[2018-06-10] MEDS: Digoxin TAB* 0.125 MG PO SCH (07:47)
[2018-06-10] MEDS: CMCS:Midodrine (NF) 5 MG TAB PO SCH (07:47)
[2018-06-10] MEDS: Amiodarone TAB* 400 MG PO SCH (07:47)
--- NOTE | 2018-06-10 09:10 | DS ---
Patient Name: Dustin Juarez Admission Date: 06/05/18 Discharge Date: 06/10/18 Attending Physician: Marcello Walker Primary Care Physician: Arturo Pierre Consulting Physician(s): Jacqueline Pascal Condition on Discharge: Terminal Final Diagnosis: Atrial fibrillation with RVR (Acute) I48.91 Cancer associated pain (Acute) G89.3 Metastatic colon cancer to liver (Acute) C18.9, C78.7 Obstructive pneumonia (Acute) J18.9 Procedures: CT abd/pel w contrast 06/06 IMPRESSION: #. Normal contrast opacification of the normally dilated inferior vena cava without compelling suggestion of bland or tumor thrombus. #. Small dependent pleural effusions with proportional basilar atelectasis. Large burden of bilateral pulmonary metastasis as previously documented. #. Probable metastatic lesion at the dome of the LEFT hepatic lobe. #. Large rectal mass measuring up to 7.8 cm AP by 7.7 cm transverse by 13 cm cephalocaudal with direct extension to the LEFT gluteal musculature. Probable direct extension to the posterior margin of the urinary bladder. Negative for bowel obstruction. #. Only trace ascites. #. Delayed renal pyelograms concerning for potential acute renal failure. Suggestion of bilateral renal metastasis. Negative for obstructive uropathy. #. Irregular-appearing mildly enlarged retroperitoneal lymph nodes consistent with metastasis given the clinical context. #. Bilateral hydroceles. #. Diffuse soft tissue edema. CXR 06/04 IMPRESSION: 1. MULTIPLE PARENCHYMAL MASSES MOST CONSISTENT WITH METASTATIC DISEASE TO THE LUNG GIVEN THE HISTORY OF MALIGNANCY. 2. PATCHY AIRSPACE DISEASE OF THE LEFT LUNG Doppler 06/04 IMPRESSION: Soft tissue edema without DVT in either lower extremity. CTA Chest 06/04 IMPRESSION: 1. No pulmonary embolus. No dissection or aneurysm in the chest. 2. Multiple pulmonary masses and nodules throughout the lungs, largest right lower lobe 4 cm consistent with metastatic disease. 3. Dense consolidation anteriorly in the left upper lobe. Some of this appearance is atelectasis, with the bronchus appearing abruptly occluded proximally. 4. Extensive hilar and mediastinal adenopathy. Infracarinal nodes measure up to 2.9 cm short axis. 5. Minimal pleural effusions. Small areas of pleural nodularity suggesting metastatic disease. Additional right lower paraspinal mass measuring 4 cm which appears metastatic. 6. Sclerotic changes T2 vertebral body consistent with metastatic disease. TTE 06/05 Conclusions The left ventricular chamber size is normal. There is no left ventricular hypertrophy. Left ventricular systolic function is at the lower limits of normal. The estimated ejection fraction is 50-55%. , no segmental wall motion abnormalities. Ability to estimate LVEF reduced by rapid atrial flutter at time of examination. The left atrial chamber size is normal. The right ventricular cavity size is normal. The right ventricular global systolic function is mildly reduced. No significant valvular abnormalities noted Unable to estimate the right ventricular systolic pressure. Catheter visualized in right atrium Small amount of pericardial fluid adjacent to right atrium, likely physiologic, possibly malignant related None prior for comparison at time of interpretation History of Present Illness Dustin Juarez is a 62-year-old male with past medical history of metastatic colorectal cancer, status post colectomy, IV & oral chemotherapies and radiation , who follows at [facility] with oncologist, Dr. Roscoe Harrell. For the last 2 weeks, he has developed swelling in his legs and for the last 4 days scrotal swelling that has become quite uncomfortable despite his large doses of chronic opioids for his colorectal cancer. He also has a history of paroxysmal atrial fibrillation. He is not the best historian. His technical services rep is Dr. Rodarte (he thinks ?) Tyler also at [facility], who has brought up the concepts of anticoagulation in the past, but nothing came out of that conversation. He says cardioversion and electrophysiology procedures also seem to have been discussed in the past. The patient last checked his heart rate about 2 weeks ago. Usually it runs in the 50s to 70s and occasionally up to 135. He denies orthopnea or paroxysmal nocturnal dyspnea. On presentation in the emergency room, he was found to be in Aflutter with a heart rate in the 150s. He was given diltiazem 10 mg at 2019, 10 mg at 2034, another 10mg at 2334 and placed on a diltiazem drip. He also got digoxin 0.5 mg at 2019. He was placed on a diltiazem drip, which has brought his heart rates to around 120s. He was referred to the hospitalist service for admission given his atrial flutter, hypotension with blood pressures mostly in the mid 80s to mid 90s systolically and 50s to 60s diastolically. The lowest recorded in ED was 57/ 45. He notably denies any chest pain or shortness of breath. Hospital Course The patient was admitted to the ICU. He became increasingly hypotensive. His cardizem gtt was discontinued and he was started on phenylephrine for bp support. He was treated for post obstructive pneumonia with levaquin. 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 His HR proved difficult to control so he was placed on an amiodarone gtt then transitioned to oral amiodarone. He converted to sinus rhythm and was weaned from phenylephrine. As per the patient he was no longer a candidate for treatment of his cancer. A ct scan was performed which showed a large rectal mass which was likely obstructing venous out flow from his lower body resulting in severe scrotal and lower extremity edema. A trial of lasix resulted in some relief. Numerous discussions held with the patient and his at the bedside about goals of care. Palliative care was consulted and the patient and his agreed to enroll in hospice. Discharge Medications Amiodarone HCl (Cordarone Tab*) 400 mg PO DAILY [facility] Last Admin: 06/10/18 07:47 Dose: 400 mg Digoxin (Lanoxin Tab*) 0.125 mg PO DAILY [facility] Last Admin: 06/10/18 07:47 Dose: 0.125 mg Docusate Sodium (Colace Cap*) 100 mg PO Q8HR [facility] Last Admin: 06/10/18 05:34 Dose: 100 mg Dronabinol (Marinol Cap*) 10 mg PO TID [facility] Last Admin: 06/10/18 07:47 Dose: 10 mg Fentanyl (Duragesic Patch 100 Mcg/Hr *) 200 mcg TRANSDERM Q72H [facility] Last Admin: 06/08/18 04:20 Dose: 200 mcg Hydromorphone HCl (Dilaudid Tab*) 16 mg PO Q8H PRN PRN Reason: PAIN Last Admin: 06/09/18 03:45 Dose: 8 mg Hydromorphone HCl (Dilaudid Blade Groover*) 20 mg in 20 mls @ 0 mls/hr 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 FEEDER .change Q24H [facility]; Protocol Last Admin: 06/10/18 07:53 Dose: 3 mls/hr Methadone HCl (Dolophine Tab*) 5 mg PO Q8H [facility] Last Admin: 06/10/18 05:34 Dose: 5 mg Metoprolol Succinate (Toprol Xl Tab*) 75 mg PO QPM [facility] Last Admin: 06/09/18 17:56 Dose: 75 mg Midodrine (Midodrine (Nf)) 5 mg PO TID [facility]; Protocol Last Admin: 06/10/18 07:47 Dose: 5 mg Pharmacy Profile Note (Fentanyl Patch Check Q Shift) 1 note FOLLOW UP 0700, 1900 [facility] Last Admin: 06/10/18 07:24 Dose: 1 note Polyethylene Glycol/Electrolytes (Miralax*) 17 gm PO BID PRN PRN Reason: CONSTIPATION Senna (Senokot Tab*) 2 tab PO BEDTIME [facility] Last Admin: 06/09/18 21:40 Dose: Not Given Tamsulosin HCl (Flomax Cap*) 0.4 mg PO QPM [facility] Last Admin: 06/09/18 17:56 Dose: 0.4 mg Discharge Instructions Diet - regular Activity - as tolerated Follow up Appointments Please follow up with your PMD and hospice physician. Code Status DNR/DNI
[2018-06-10] MEDS: HYDROmorphone TAB* 4 MG PO PRN (11:44)
[2018-06-10 12:09] VITALS: BP 110/57
== END 2018-06-10 12:00 | disposition hospice, home (50) | DRG 201 ==
LOC: ED 17:06 → INTOOBSV 06-05 02:09 → ICU 06-05 02:09 → OBSVTOIN 06-05 10:00
PROVIDERS: ADMIT Internal Medicine; ATTEND Internal Medicine
PROC: 3E033XZ Introduction of Vasopressor into Peripheral Vein, Percutaneous Approach (ICD-10-PCS; principal; 2018-06-05)
DX: I48.92 Unspecified atrial flutter (principal); J18.8 Other pneumonia, unspecified organism; C18.9 Malignant neoplasm of colon, unspecified; C78.5 Secondary malignant neoplasm of large intestine and rectum; C78.7 Secondary malignant neoplasm of liver and intrahepatic bile duct; C77.4 Secondary and unspecified malignant neoplasm of inguinal and lower limb lymph nodes; C79.70 Secondary malignant neoplasm of unspecified adrenal gland; C79.51 Secondary malignant neoplasm of bone; C78.02 Secondary malignant neoplasm of left lung; C78.01 Secondary malignant neoplasm of right lung; J98.11 Atelectasis; R18.8 Other ascites; I48.0 Paroxysmal atrial fibrillation; I95.9 Hypotension, unspecified; N40.0 Benign prostatic hyperplasia without lower urinary tract symptoms; I50.9 Heart failure, unspecified; Z66 Do not resuscitate; K62.89 Other specified diseases of anus and rectum; G47.00 Insomnia, unspecified; K62.4 Stenosis of anus and rectum; D64.9 Anemia, unspecified; G89.3 Neoplasm related pain (acute) (chronic); N43.3 Hydrocele, unspecified; R09.02 Hypoxemia; Z90.49 Acquired absence of other specified parts of digestive tract; Z92.3 Personal history of irradiation; Z92.21 Personal history of antineoplastic chemotherapy; Z82.49 Family history of ischemic heart disease and other diseases of the circulatory system; Z82.0 Family history of epilepsy and other diseases of the nervous system; Z93.3 Colostomy status; Z82.3 Family history of stroke; Z79.891 Long term (current) use of opiate analgesic
CPT/HCPCS: 36415; 71045; 71275; 74177; 80048; 80053; 83735; 83880; 85025; 85610; 85730; 87040; 87641; 90732; 93005; 93306; 93970; 96374; 96375; 99285; A9270-GY; G0378; J0282; J1160; J1170; J1642; J1940; J2405; J3010; J3475; J3490; Q9967